=== PATIENT | female | born 2005 | race Caucasian/White ===

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

== ENCOUNTER → 2024-05-02 09:48 | Outpatient (BNVA) | payer MEDICAID, SELFPAY | PROVIDERS: PCP Pediatrics Adolescent Medicine; Visit Provider Nurse Practitioner | DX: J02.9 Acute pharyngitis, unspecified (principal) | CPT/HCPCS: 87070; 87486; 87581; 87633; 87880 ==

== ENCOUNTER → 2024-05-07 14:44 | Outpatient (BNVA) | payer MEDICAID, SELFPAY | PROVIDERS: PCP Pediatrics Adolescent Medicine; Visit Provider Pediatrics Adolescent Medicine | DX: J06.9 Acute upper respiratory infection, unspecified (principal) | CPT/HCPCS: 87486; 87581; 87633 ==

== ENCOUNTER → 2024-07-06 09:26 | Outpatient (BNVA) | payer MEDICAID, SELFPAY | PROVIDERS: PCP Pediatrics Adolescent Medicine; Visit Provider Nurse Practitioner | DX: R30.0 Dysuria (principal) | CPT/HCPCS: 81000; 87086 ==

== ENCOUNTER 2024-07-15 20:04 | Emergency (ER) | payer MEDICAID, SELFPAY ==
--- NOTE | 2024-07-15 20:06 | ECG_ITS ---
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 Measurements Intervals [place] Rate: 101 P: 56 GA: 144 QRS: 82 QRSD: 95 T: 46 QT: 340 QTc: 442 Interpretive Statements SINUS TACHYCARDIA ABNORMAL RHYTHM ECG No previous ECG avail Electronically Signed On 07-16-2024 22:43:57 CDT by Jose Gamez M.D. [id number]
[2024-07-15 20:15] VITALS: BP 131/76; PULSE 100; RESP 17; TEMP 36.7; O2SAT 95; BMI 46.2
--- NOTE | 2024-07-15 21:31 | ED_ITS ---
Documented by User: CHRISTINA Cullen 07/16/24 00:28 HPI - General Adult 2 General: Chief complaint: Nausea/Vomiting/Diarrhea Stated complaint: Chest pain Time Seen by Provider: 07/15/24 21:19 History of Present Illness: 19-year-old female was brought in from [facility] for concerns of generalized bodyaches and weakness. Patient was being awakened for a nap and stated that she is felt achy all over and did not want to get up. Patient's caregivers got her up and had her walk over to the nurses station in order to have vitals checked. On evaluation there they noted her blood pressure was high and recommended that she be evaluated further in the ER. Patient makes generalized complaints of bodyaches and weakness with increased pain with deep inspiration. Patient does have some mental disability with intellectual disability. Patient is morbidly obese. Related Data Home Medications Medication Instructions Recorded Confirmed ascorbic acid (vitamin C) 1,000 mg 1,000 mg PO DAILY 02/12/20 07/06/24 tablet,extended release (C Complex) vit B complex 100 combo no.2 100 1 tab PO DAILY 02/12/20 07/06/24 mg tablet,extended release (Balanced B-100 Complex) lamotrigine 200 mg tablet 300 mg PO DAILY 03/04/21 07/06/24 clonidine HCl 0.1 mg 0.2 mg PO TID 12/19/23 07/06/24 tablet,extended release,12 hr sertraline 150 mg capsule 200 mg PO DAILY 01/18/24 07/06/24 benzocaine 15 mg-menthol 2.6 mg 1 [place] mucous membrane Q2H PRN 05/02/24 07/06/24 lozenges (Cepacol Sore Throat (benzocaine-menthol)) lidocaine prilocaine cream topical PRN 05/02/24 07/06/24 lorazepam 0.5 mg tablet 1 mg PO TID PRN 05/02/24 07/06/24 nystatin topical PRN 05/02/24 07/06/24 ziprasidone HCl 60 mg capsule 80 mg PO BID 05/02/24 07/06/24 Previous Rx's Medication Instructions Recorded pediatric multivitamin no.17 with 1 tab PO DAILY #30 tabs 12/19/23 fluoride 1 mg chewable tablet (Multi-Vitamin With Fluoride) fluticasone propionate 50 1 spray intranasal DAILY #16 grams 01/18/24 mcg/actuation nasal spray,suspension (Allergy Relief (fluticasone)) acetaminophen 500 mg capsule 500 mg PO QID PRN pain #60 caps 01/19/24 benzocaine 15 mg-menthol 2.6 mg 1 [place] mucous membrane Q2H PRN sore 01/27/24 lozenges (Cepacol Sore Throat throat #16 ea (benzocaine-menthol)) simethicone 125 mg capsule (Gas 125 mg PO QID PRN abdominal 01/27/24 Relief (simethicone)) distention #90 caps levonorgestrel 0.15 mg-ethinyl 1 tab PO DAILY #84 tabs 02/15/24 estradiol 0.03 mg tablet (Levora-28) polyethylene glycol 3350 17 See Rx Instructions .Route 03/13/24 gram/dose oral powder (Gavilax) .COMPLEX #510 grams mupirocin 2 % topical ointment 1 applic topical TID PRN crusted 03/23/24 rash 7 days #22 grams hydroxyzine HCl 50 mg tablet 50 mg PO TID #180 tabs 05/02/24 erythromycin 5 mg/gram (0.5 %) eye See Rx Instructions ophthalmic 05/07/24 ointment (3.5 gram tube) (eye) TID #3.5 grams levomefolate calcium 15 mg tablet 15 mg PO DAILY #30 tabs 06/01/24 (L-Methylfolate) cetirizine 10 mg tablet See Rx Instructions .Route 07/12/24 .COMPLEX #30 tabs cephalexin 500 mg capsule 500 mg PO BID 7 days #14 caps 07/16/24 Allergies Allergy/AdvReac Type Severity Reaction Status Date / Time caffeine Allergy Unknown Verified 07/15/24 20:21 cocoa Allergy Unknown Verified 07/15/24 20:21 guarana Allergy Unknown Verified 07/15/24 20:21 Xanthines Allergy Unknown Verified 07/15/24 20:21 aripiprazole [From Abilify] AdvReac Mild Behavior Verified 07/06/24 09:25 problems brexpiprazole [From Rexulti] AdvReac Mild Causes Verified 07/06/24 09:25 lurasidone [From Latuda] AdvReac Mild Causes Verified 07/06/24 09:25 amphetamine [From Adderall] AdvReac Anxiety Verified 07/06/24 09:25 dextroamphetamine AdvReac Anxiety Verified 07/06/24 09:25 [From Adderall] Review of Systems 2 General: Reports: 10 or more systems reviewed and unremarkable except in HPI and below Const: Reports: body aches PFSH ED 2 PFSH: Medical History Exercise counseling No pertinent past medical history Denies diabetes, asthma, hypertension, DVT/PE PCP: Dr. Lopez Autism Seizure one seizure in elementary school; no known etiology; no further episodes Oppositional defiant behavior ADD (attention deficit disorder) Surgical History H/O tubal ligation (~01/18/23) performed by [facility] S/P eye surgery Grandmother states that her external eye muscles were too long and they were shortened to help with vision. S/P tonsillectomy and adenoidectomy In February 2014 Family History Mother Hypertension Unknown Family history not known due to adoption Elli's mother was adopted and details of family history are unknown. Yolanda mother has been incarcerated with multiple social problems and as a result Elli stays with her grandmother. Social History Smoking and tobacco/nicotine status: never used tobacco/nicotine Physical Exam 2 Const: COMMON NORMALS: alert HENMT: COMMON NORMALS: normocephalic HEAD & SCALP: normocephalic THROAT: posterior oropharynx normal Neck/C-Spine: COMMON NORMALS: full ROM Resp: COMMON NORMALS: normal respiratory effort and clear to auscultation bilaterally AUSCULTATION: clear to auscultation bilaterally Cardio: COMMON NORMALS: regular rate and regular rhythm RATE: regular rate RHYTHM: regular rhythm GI: COMMON NORMALS: Soft to palpation PALPATION: Yes Soft to palpation and Yes Tenderness to palpation present (GI) : COMMON NORMALS: Yes no CVA tenderness BLADDER/KIDNEY EXAM: Yes no CVA tenderness Back/Pelvis: COMMON NORMALS: no CVA tenderness Extremity: COMMON NORMALS: normal to inspection Neuro: SENSORIUM/ORIENTATION: Yes alert Skin: COMMON NORMALS: turgor normal GENERAL SKIN EXAM: turgor normal Course 2 Vital Signs: Vital signs: Vital Signs Temperature 98.1 F 07/15/24 20:15 Pulse Rate 108 H 07/16/24 00:35 Respiratory Rate 16 07/16/24 00:35 Blood Pressure 114/63 07/16/24 00:35 Pulse Oximetry 93 07/16/24 00:35 Oxygen Delivery Me thod Room Air 07/15/24 22:21 MDM - General Adult Medical Decision Making Patient was brought in by caregiving staff for concerns of weakness and generalized pain. Patient appears nontoxic. Patient skin is warm and dry. Patient has tenderness on palpation of the abdomen. Patient moves all extremities well. Vital signs are normal. Differential diagnosis includes viral syndrome, urinary tract infection, pneumonia, electrolyte imbalance, malingering. CBC and CMP were unremarkable. Chest x-ray noted some cardiomegaly and some vascular congestion/interstitial edema. Troponin was less than 6. And BNP was less than 30. I believe most likely the chest x-ray is probably more related to patient's body habitus. Patient's urine did have some increased white blood cells and leukocyte esterases. I reviewed patient with Dr. Taylor, attending ER physician, who agreed with plan for treatment for urinary tract infection and follow-up as needed and return to ER for worsening symptoms. Lab Data 07/15/24 21:56 07/15/24 21:56 Radiology Impressions Chest X-Ray 07/15/24 21:31 IMPRESSION: Cardiomegaly, pulmonary vascular congestion interstitial edema. Laboratory Results WBC 10.68 10^3/uL (4.5-13.0) 07/15/24 21:56 RBC 4.72 10^6/uL (3.85-5.65) 07/15/24 21:56 Hgb 13.10 g/dL (12.4-14.8) 07/15/24 21:56 Hct 41.5 % (36-47) 07/15/24 21:56 MCV 87.9 fl (85-98) 07/15/24 21:56 MCH 27.8 pg (27-33) 07/15/24 21:56 MCHC 31.6 g/dL (30-55) 07/15/24 21:56 RDW 12.8 % (12.1-15.1) 07/15/24 21:56 Plt Count 326 10^3/cmm (157-399) 07/15/24 21:56 MPV 9.2 fL (7.4-10.4) 07/15/24 21:56 Neut % (Auto) 61.5 % 07/15/24 21:56 Lymph % (Auto) 23.1 % 07/15/24 21:56 [place] % (Auto) 11.7 % 07/15/24 21:56 Eos % (Auto) 2.7 % 07/15/24 21:56 Baso % (Auto) 0.5 % 07/15/24 21:56 Neut # (Auto) 6.57 10^3/uL (1.8-8.0) 07/15/24 21:56 Lymph # (Auto) 2.5 10^3/uL (1.5-6.5) 07/15/24 21:56 [place] # (Auto) 1.3 10^3/uL (0.2-0.9) H 07/15/24 21:56 Eos # (Auto) 0.3 10^3/uL (0.0-0.8) 07/15/24 21:56 Baso # (Auto) 0.1 10^3/uL (0.0-0.1) 07/15/24 21:56 Nucleated RBC % (auto) 0 % 07/15/24 21:56 Nucleated RBCs # 0.0 /100WBC 07/15/24 21:56 Sodium 138 mmol/L (136-145) 07/15/24 21:56 Potassium 4.2 mmol/L (3.5-5.1) 07/15/24 21:56 Chloride 103 mmol/L (98-107) 07/15/24 21:56 Carbon Dioxide 23 mmol/L (22-29) 07/15/24 21:56 Anion Gap 16.2 (5-19) 07/15/24 21:56 BUN 12 mg/dL (6-20) 07/15/24 21:56 Creatinine 0.5 mg/dL (0.5-0.9) 07/15/24 21:56 GFR Calculation 157.3 mL/min (90-130) H 07/15/24 21:56 Glucose 104 mg/dL (65-115) 07/15/24 21:56 Calculated Osmolality 286 mOsm/kg (285-295) 07/15/24 21:56 Lactic Acid 1.4 mmol/L (0.5-2.2) 07/15/24 21:56 Calcium 9.6 mg/dL (8.5-10.5) 07/15/24 21:56 Total Bilirubin 0.2 mg/dL (0.15-1.2) 07/15/24 21:56 AST 27 U/L (0-32) 07/15/24 21:56 ALT 22 U/L (0-33) 07/15/24 21:56 Alkaline Phosphatase 84 U/L (35-105) 07/15/24 21:56 Troponin T Baseline < 6 ng/L (0-10) 07/15/24 21:56 C-Reactive Protein 25.4 mg/L (0.0-4.9) H 07/15/24 21:56 NT-Pro-B Natriuret Pep < 36 pg/mL (0-125) 07/15/24 21:56 Total Protein 7.4 g/dL (6.6-8.7) 07/15/24 21:56 Albumin 4.0 g/dL (3.5-5.2) 07/15/24 21:56 Globulin 3.4 g/dL (1.3-4.6) 07/15/24 21:56 HCG, Qual Negative (Negative) 07/15/24 21:56 Urine Color Yellow (Yellow) 07/15/24 22:10 Urine Appearance Turbid (CLEAR) A 07/15/24 22:10 Urine pH 7.5 (5-7) 07/15/24 22:10 Ur Specific [place] 1.019 (1.005-1.030) 07/15/24 22:10 Urine Protein Negative (Negative) 07/15/24 22:10 Urine Glucose (UA) Negative (Normal) 07/15/24 22:10 Urine Ketones Negative (Negative) 07/15/24 22:10 Urine Blood Negative (Negative) 07/15/24 22:10 Urine Nitrate Negative (Negative) 07/15/24 22:10 Urine Bilirubin Negative (Negative) 07/15/24 22:10 Urine Urobilinogen 1.0 mg/dL (Negative) 07/15/24 22:10 Ur Leukocyte Esterase 1+ (Negative) A 07/15/24 22:10 Urine RBC 0-2 /hpf (0-2) 07/15/24 22:10 Urine WBC 11-20 /hpf (0-5) H 07/15/24 22:10 Ur Squamous Epith Cells 0-5 /hpf (0-5) 07/15/24 22:10 Amorphous Sediment Not Reportable 07/15/24 22:10 Urine Bacteria None seen /hpf (NONE) 07/15/24 22:10 Hyaline Casts 1.21 /lpf 07/15/24 22:10 Adenovirus (PCR) Not detected (NOT DETECT) 07/15/24 21:46 C. pneumoniae DNA (PCR) Not detected (NOT DETECT) 07/15/24 21:46 Coronavirus 229E (PCR) Not detected (NOT DETECT) 07/15/24 21:46 Human Metapneumovir PCR Not detected (NOT DETECT) 07/15/24 21:46 Influenza A (H1) PCR Not detected (NOT DETECT) 07/15/24 21:46 Influ A (H1/09) PCR Not detected (NOT DETECT) 07/15/24 21:46 Influenza A (H3) PCR Not detected (NOT DETECT) 07/15/24 21:46 Influenza Type A (PCR) Not detected (NOT DETECT) 07/15/24 21:46 Influenza Type B (PCR) Not detected (NOT DETECT) 07/15/24 21:46 M. pneumoniae (PCR) Not detected (NOT DETECT) 07/15/24 21:46 Parainfluenza 1 (PCR) Not detected (NOT DETECT) 07/15/24 21:46 Parainfluenza 2 (PCR) Not detected (NOT DETECT) 07/15/24 21:46 Parainfluenza 3 (PCR) Not detected (NOT DETECT) 07/15/24 21:46 Parainfluenza 4 (PCR) Not detected (NOT DETECT) 07/15/24 21:46 RSV Type A (PCR) Not detected (NOT DETECT) 07/15/24 21:46 RSV Type B (PCR) Not detected (NOT DETECT) 07/15/24 21:46 Entero/Rhino (PCR) Not detected (NOT DETECT) 07/15/24 21:46 SARS-CoV-2 (PCR) Not detected (NOT DETECT) 07/15/24 21:46 All radiology interpretation(s) finalized by discharge EKG Data EKG 1: I personally reviewed and interpreted this EKG as follows: EKG interpretation date: 07/15/24 EKG interpretation time: 23:15 Prior EKG tracings: not available for review Interpretation: EKG shows a sinus tachycardia with a ventricular rate of 101 bpm and regular. No ST elevation is noted. No ectopy is noted. No prior exam was available for comparison. Computer generated interpretation: Chest X-Ray 07/15/24 21:31 IMPRESSION: Cardiomegaly, pulmonary vascular congestion interstitial edema. Sinus tachycardia. Abnormal rhythm EKG. Unconfirmed report. Discharge Plan Discharge Patient Disposition: Home Clinical Impression: UTI (urinary tract infection) Qualifiers: Urinary tract infection type: acute cystitis Hematuria presence: without hematuria Qualified Code(s): N30.00 - Acute cystitis without hematuria Condition: Stable Prescriptions: New cephalexin 500 mg capsule 500 mg PO BID 7 Days Qty: 14 0RF No Action Balanced B-100 Complex 100 mg tablet extended release 1 tab PO DAILY Rx Instructions: take 1 tablet PO every day at 8am. ascorbic acid (vitamin C) [C Complex] 1,000 mg tablet extended release 1,000 mg PO DAILY Rx Instructions: Take 1 tablet PO, every day at 8am. lamotrigine 200 mg tablet 300 mg PO DAILY levonorgestrel-ethinyl estrad [Levora-28] 0.15-0.03 mg tablet 1 tab PO DAILY Qty: 84 5RF Rx Instructions: TAKING CONTINUOUS-- SKIPS PLACEBO; ALLOW FOR ENOUGH REFILLS TO LAST UNTIL 02/14/25 Multi-Vitamin With Fluoride 1 mg tablet,chewable 1 tab PO DAILY Qty: 30 11RF Rx Instructions: TAKE 1 TABLET BY MOUTH EVERY DAY ziprasidone HCl 60 mg capsule 80 mg PO BID Rx Instructions: Take 1 tablet by Mouth morning and at 8pm. hydroxyzine HCl 50 mg tablet 50 mg PO TID Qty: 180 3RF Rx Instructions: morning, afternoon and evening lorazepam 0.5 mg tablet 1 mg PO TID PRN Cepacol Sore Throat (abdi-men) 15-2.6 mg lozenge 1 [place] mucous membrane Q2H PRN lidocaine prilocaine cream topical PRN nystatin topical PRN erythromycin 5 mg/gram (0.5 %) ointment See Rx Instructions ophthalmic (eye) TID Qty: 3.5 0RF Rx Instructions: one application into the eye(s) three times daily for 5-7 days; sertraline 150 mg capsule 200 mg PO DAILY fluticasone propionate [Allergy Relief (fluticasone)] 50 mcg/actuation spray,suspension 1 spray INTRANASAL DAILY Qty: 16 0RF Rx Instructions: 1 spray each nostril daily acetaminophen 500 mg capsule 500 mg PO QID PRN (Reason: pain) Qty: 60 0RF simethicone [Gas Relief (simethicone)] 125 mg capsule 125 mg PO QID MDD 4 caps PRN (Reason: abdominal distention) Qty: 90 3RF Rx Instructions: 1 cap by mouth after meals and at bedtime Cepacol Sore Throat (abdi-men) 15-2.6 mg lozenge 1 [place] mucous membrane Q2H PRN (Reason: sore throat) Qty: 16 3RF Rx Instructions: 1 lozenge by mouth every 2 hr as needed for sore throat polyethylene glycol 3350 [Gavilax] 17 gram/dose powder See Rx Instructions .ROUTE .COMPLEX Qty: 510 3RF Dose Instruction: USE 17 GRAMS EVERY DAY FOR CONSTIPATION Rx Instructions: USE 17 GRAMS EVERY DAY FOR CONSTIPATION mupirocin 2 % ointment 1 applic topical TID PRN (Reason: crusted rash) 7 Days Qty: 22 0RF Rx Instructions: apply 3x/day x 7 days if crusted/oozing rash suggests impetigo levomefolate calcium [L-Methylfolate] 15 mg tablet 15 mg PO DAILY Qty: 30 3RF cetirizine 10 mg tablet See Rx Instructions .ROUTE .COMPLEX Qty: 30 3RF Dose Instruction: TAKE ONE TABLET BY MOUTH EVERY DAY Rx Instructions: TAKE ONE TABLET BY MOUTH EVERY DAY clonidine HCl 0.1 mg tablet extended release 12 hr 0.2 mg PO TID Patient Comments: 2 tabs morning, noon, and evening Discharge Orders: Discharge ED (Routine); Ordered 07/16/24 Ordered By: Jonathan Centeno Referrals: Melanie Lopez MD [Primary Care Provider] - Discharge Diet: Usual diet Discharge Activity: Increase activity as tolerated Patient Instructions: Urinary Tract Infection in Women (ED) Activity Restrictions/Additional Instructions: Thank you for choosing [facility] for your healthcare needs today. Please realize that you were seen in the emergency department and that we are providing you with an emergency medical screening exam and this may not be a complete and all exclusive of all testing and/or medical workup we may need to determine your element or severity of your illness. It is very important that you follow-up as instructed with your primary care provider or specialist for the additional evaluation and to discuss your medical treatment plan. You may return to the emergency department should you have concerns or if your condition changes or worsens in any way. Coding Level of Care Code ED Hoe Runner for Chg Fwd Documented by User: Ronald Taylor DO 07/16/24 02:07 HPI - General Adult 2 General: Chief complaint: Nausea/Vomiting/Diarrhea Stated complaint: Chest pain Time Seen by Provider: 07/15/24 21:19 Related Data Home Medications Medication Instructions Recorded Confirmed ascorbic acid (vitamin C) 1,000 mg 1,000 mg PO DAILY 02/12/20 07/06/24 tablet,extended release (C Complex) vit B complex 100 combo no.2 100 1 tab PO DAILY 02/12/20 07/06/24 mg tablet,extended release (Balanced B-100 Complex) lamotrigine 200 mg tablet 300 mg PO DAILY 03/04/21 07/06/24 clonidine HCl 0.1 mg 0.2 mg PO TID 12/19/23 07/06/24 tablet,extended release,12 hr sertraline 150 mg capsule 200 mg PO DAILY 01/18/24 07/06/24 benzocaine 15 mg-menthol 2.6 mg 1 [place] mucous membrane Q2H PRN 05/02/24 07/06/24 lozenges (Cepacol Sore Throat (benzocaine-menthol)) lidocaine prilocaine cream topical PRN 05/02/24 07/06/24 lorazepam 0.5 mg tablet 1 mg PO TID PRN 05/02/24 07/06/24 nystatin topical PRN 05/02/24 07/06/24 ziprasidone HCl 60 mg capsule 80 mg PO BID 05/02/24 07/06/24 Previous Rx's Medication Instructions Recorded pediatric multivitamin no.17 with 1 tab PO DAILY #30 tabs 12/19/23 fluoride 1 mg chewable tablet (Multi-Vitamin With Fluoride) fluticasone propionate 50 1 spray intranasal DAILY #16 grams 01/18/24 mcg/actuation nasal spray,suspension (Allergy Relief (fluticasone)) acetaminophen 500 mg capsule 500 mg PO QID PRN pain #60 caps 01/19/24 benzocaine 15 mg-menthol 2.6 mg 1 [place] mucous membrane Q2H PRN sore 01/27/24 lozenges (Cepacol Sore Throat throat #16 ea (benzocaine-menthol)) simethicone 125 mg capsule (Gas 125 mg PO QID PRN abdominal 01/27/24 Relief (simethicone)) distention #90 caps levonorgestrel 0.15 mg-ethinyl 1 tab PO DAILY #84 tabs 02/15/24 estradiol 0.03 mg tablet (Levora-28) polyethylene glycol 3350 17 See Rx Instructions .Route 03/13/24 gram/dose oral powder (Gavilax) .COMPLEX #510 grams mupirocin 2 % topical ointment 1 applic topical TID PRN crusted 03/23/24 rash 7 days #22 grams hydroxyzine HCl 50 mg tablet 50 mg PO TID #180 tabs 05/02/24 erythromycin 5 mg/gram (0.5 %) eye See Rx Instructions ophthalmic 05/07/24 ointment (3.5 gram tube) (eye) TID #3.5 grams levomefolate calcium 15 mg tablet 15 mg PO DAILY #30 tabs 06/01/24 (L-Methylfolate) cetirizine 10 mg tablet See Rx Instructions .Route 07/12/24 .COMPLEX #30 tabs cephalexin 500 mg capsule 500 mg PO BID 7 days #14 caps 07/16/24 Allergies Allergy/AdvReac Type Severity Reaction Status Date / Time caffeine Allergy Unknown Verified 07/15/24 20:21 cocoa Allergy Unknown Verified 07/15/24 20:21 guarana Allergy Unknown Verified 07/15/24 20:21 Xanthines Allergy Unknown Verified 07/15/24 20:21 aripiprazole [From Abilify] AdvReac Mild Behavior Verified 07/06/24 09:25 problems brexpiprazole [From Rexulti] AdvReac Mild Causes Verified 07/06/24 09:25 lurasidone [From Latuda] AdvReac Mild Causes Verified 07/06/24 09:25 amphetamine [From Adderall] AdvReac Anxiety Verified 07/06/24 09:25 dextroamphetamine AdvReac Anxiety Verified 07/06/24 09:25 [From Adderall] [facility] ED 2 PFSH: Medical History Exercise counseling No pertinent past medical history Denies diabetes, asthma, hypertension, DVT/PE PCP: Dr. Lopez Autism Seizure one seizure in elementary school; no known etiology; no further episodes Oppositional defiant behavior ADD (attention deficit disorder) Surgical History H/O tubal ligation (~01/18/23) performed by [facility] S/P eye surgery Grandmother states that her external eye muscles were too long and they were shortened to help with vision. S/P tonsillectomy and adenoidectomy In February 2014 Family History Mother Hypertension Unknown Family history not known due to adoption Elli's mother was adopted and details of family history are unknown. Yolanda mother has been incarcerated with multiple social problems and as a result Elli stays with her grandmother. Social History Smoking and tobacco/nicotine status: never used tobacco/nicotine Course 2 Vital Signs: Vital signs: Vital Signs Temperature 98.1 F 07/15/24 20:15 Pulse Rate 108 H 07/16/24 00:35 Respiratory Rate 16 07/16/24 00:35 Blood Pressure 114/63 07/16/24 00:35 Pulse Oximetry 93 07/16/24 00:35 Oxygen Delivery Me thod Room Air 07/15/24 22:21 MDM - General Adult Medical Decision Making Patient was brought in by caregiving staff for concerns of weakness and generalized pain. Patient appears nontoxic. Patient skin is warm and dry. Patient has tenderness on palpation of the abdomen. Patient moves all extremities well. Vital signs are normal. Differential diagnosis includes viral syndrome, urinary tract infection, pneumonia, electrolyte imbalance, malingering. CBC and CMP were unremarkable. Chest x-ray noted some cardiomegaly and some vascular congestion/interstitial edema. Troponin was less than 6. And BNP was less than 30. I believe most likely the chest x-ray is probably more related to patient's body habitus. Patient's urine did have some increased white blood cells and leukocyte esterases. I reviewed patient with Dr. Taylor, attending ER physician, who agreed with plan for treatment for urinary tract infection and follow-up as needed and return to ER for worsening symptoms. This patient was originally seen by CHRISTINA Harp.? I agree with his history, evaluation, and treatment. Lab Data 07/15/24 21:56 07/15/24 21:56 Radiology Impressions Chest X-Ray 07/15/24 21:31 IMPRESSION: Cardiomegaly, pulmonary vascular congestion interstitial edema. Laboratory Results WBC 10.68 10^3/uL (4.5-13.0) 07/15/24 21:56 RBC 4.72 10^6/uL (3.85-5.65) 07/15/24 21:56 Hgb 13.10 g/dL (12.4-14.8) 07/15/24 21:56 Hct 41.5 % (36-47) 07/15/24 21:56 MCV 87.9 fl (85-98) 07/15/24 21:56 MCH 27.8 pg (27-33) 07/15/24 21:56 MCHC 31.6 g/dL (30-55) 07/15/24 21:56 RDW 12.8 % (12.1-15.1) 07/15/24 21:56 Plt Count 326 10^3/cmm (157-399) 07/15/24 21:56 MPV 9.2 fL (7.4-10.4) 07/15/24 21:56 Neut % (Auto) 61.5 % 07/15/24 21:56 Lymph % (Auto) 23.1 % 07/15/24 21:56 [place] % (Auto) 11.7 % 07/15/24 21:56 Eos % (Auto) 2.7 % 07/15/24 21:56 Baso % (Auto) 0.5 % 07/15/24 21:56 Neut # (Auto) 6.57 10^3/uL (1.8-8.0) 07/15/24 21:56 Lymph # (Auto) 2.5 10^3/uL (1.5-6.5) 07/15/24 21:56 [place] # (Auto) 1.3 10^3/uL (0.2-0.9) H 07/15/24 21:56 Eos # (Auto) 0.3 10^3/uL (0.0-0.8) 07/15/24 21:56 Baso # (Auto) 0.1 10^3/uL (0.0-0.1) 07/15/24 21:56 Nucleated RBC % (auto) 0 % 07/15/24 21:56 Nucleated RBCs # 0.0 /100WBC 07/15/24 21:56 Sodium 138 mmol/L (136-145) 07/15/24 21:56 Potassium 4.2 mmol/L (3.5-5.1) 07/15/24 21:56 Chloride 103 mmol/L (98-107) 07/15/24 21:56 Carbon Dioxide 23 mmol/L (22-29) 07/15/24 21:56 Anion Gap 16.2 (5-19) 07/15/24 21:56 BUN 12 mg/dL (6-20) 07/15/24 21:56 Creatinine 0.5 mg/dL (0.5-0.9) 07/15/24 21:56 GFR Calculation 157.3 mL/min (90-130) H 07/15/24 21:56 Glucose 104 mg/dL (65-115) 07/15/24 21:56 Calculated Osmolality 286 mOsm/kg (285-295) 07/15/24 21:56 Lactic Acid 1.4 mmol/L (0.5-2.2) 07/15/24 21:56 Calcium 9.6 mg/dL (8.5-10.5) 07/15/24 21:56 Total Bilirubin 0.2 mg/dL (0.15-1.2) 07/15/24 21:56 AST 27 U/L (0-32) 07/15/24 21:56 ALT 22 U/L (0-33) 07/15/24 21:56 Alkaline Phosphatase 84 U/L (35-105) 07/15/24 21:56 Troponin T Baseline < 6 ng/L (0-10) 07/15/24 21:56 C-Reactive Protein 25.4 mg/L (0.0-4.9) H 07/15/24 21:56 NT-Pro-B Natriuret Pep < 36 pg/mL (0-125) 07/15/24 21:56 Total Protein 7.4 g/dL (6.6-8.7) 07/15/24 21:56 Albumin 4.0 g/dL (3.5-5.2) 07/15/24 21:56 Globulin 3.4 g/dL (1.3-4.6) 07/15/24 21:56 HCG, Qual Negative (Negative) 07/15/24 21:56 Urine Color Yellow (Yellow) 07/15/24 22:10 Urine Appearance Turbid (CLEAR) A 07/15/24 22:10 Urine pH 7.5 (5-7) 07/15/24 22:10 Ur Specific [place] 1.019 (1.005-1.030) 07/15/24 22:10 Urine Protein Negative (Negative) 07/15/24 22:10 Urine Glucose (UA) Negative (Normal) 07/15/24 22:10 Urine Ketones Negative (Negative) 07/15/24 22:10 Urine Blood Negative (Negative) 07/15/24 22:10 Urine Nitrate Negative (Negative) 07/15/24 22:10 Urine Bilirubin Negative (Negative) 07/15/24 22:10 Urine Urobilinogen 1.0 mg/dL (Negative) 07/15/24 22:10 Ur Leukocyte Esterase 1+ (Negative) A 07/15/24 22:10 Urine RBC 0-2 /hpf (0-2) 07/15/24 22:10 Urine WBC 11-20 /hpf (0-5) H 07/15/24 22:10 Ur Squamous Epith Cells 0-5 /hpf (0-5) 07/15/24 22:10 Amorphous Sediment Not Reportable 07/15/24 22:10 Urine Bacteria None seen /hpf (NONE) 07/15/24 22:10 Hyaline Casts 1.21 /lpf 07/15/24 22:10 Adenovirus (PCR) Not detected (NOT DETECT) 07/15/24 21:46 C. pneumoniae DNA (PCR) Not detected (NOT DETECT) 07/15/24 21:46 Coronavirus 229E (PCR) Not detected (NOT DETECT) 07/15/24 21:46 Human Metapneumovir PCR Not detected (NOT DETECT) 07/15/24 21:46 Influenza A (H1) PCR Not detected (NOT DETECT) 07/15/24 21:46 Influ A (H1/09) PCR Not detected (NOT DETECT) 07/15/24 21:46 Influenza A (H3) PCR Not detected (NOT DETECT) 07/15/24 21:46 Influenza Type A (PCR) Not detected (NOT DETECT) 07/15/24 21:46 Influenza Type B (PCR) Not detected (NOT DETECT) 07/15/24 21:46 M. pneumoniae (PCR) Not detected (NOT DETECT) 07/15/24 21:46 Parainfluenza 1 (PCR) Not detected (NOT DETECT) 07/15/24 21:46 Parainfluenza 2 (PCR) Not detected (NOT DETECT) 07/15/24 21:46 Parainfluenza 3 (PCR) Not detected (NOT DETECT) 07/15/24 21:46 Parainfluenza 4 (PCR) Not detected (NOT DETECT) 07/15/24 21:46 RSV Type A (PCR) Not detected (NOT DETECT) 07/15/24 21:46 RSV Type B (PCR) Not detected (NOT DETECT) 07/15/24 21:46 Entero/Rhino (PCR) Not detected (NOT DETECT) 07/15/24 21:46 SARS-CoV-2 (PCR) Not detected (NOT DETECT) 07/15/24 21:46 EKG Data EKG 1: Computer generated interpretation: Chest X-Ray 07/15/24 21:31 IMPRESSION: Cardiomegaly, pulmonary vascular congestion interstitial edema. Discharge Plan Discharge Patient Disposition: Home Clinical Impression: UTI (urinary tract infection) Qualifiers: Urinary tract infection type: acute cystitis Hematuria presence: without hematuria Qualified Code(s): N30.00 - Acute cystitis without hematuria Condition: Stable Prescriptions: New cephalexin 500 mg capsule 500 mg PO BID 7 Days Qty: 14 0RF No Action Balanced B-100 Complex 100 mg tablet extended release 1 tab PO DAILY Rx Instructions: take 1 tablet PO every day at 8am. ascorbic acid (vitamin C) [C Complex] 1,000 mg tablet extended release 1,000 mg PO DAILY Rx Instructions: Take 1 tablet PO, every day at 8am. lamotrigine 200 mg tablet 300 mg PO DAILY levonorgestrel-ethinyl estrad [Levora-28] 0.15-0.03 mg tablet 1 tab PO DAILY Qty: 84 5RF Rx Instructions: TAKING CONTINUOUS-- SKIPS PLACEBO; ALLOW FOR ENOUGH REFILLS TO LAST UNTIL 02/14/25 Multi-Vitamin With Fluoride 1 mg tablet,chewable 1 tab PO DAILY Qty: 30 11RF Rx Instructions: TAKE 1 TABLET BY MOUTH EVERY DAY ziprasidone HCl 60 mg capsule 80 mg PO BID Rx Instructions: Take 1 tablet by Mouth morning and at 8pm. hydroxyzine HCl 50 mg tablet 50 mg PO TID Qty: 180 3RF Rx Instructions: morning, afternoon and evening lorazepam 0.5 mg tablet 1 mg PO TID PRN Cepacol Sore Throat (abdi-men) 15-2.6 mg lozenge 1 [place] mucous membrane Q2H PRN lidocaine prilocaine cream topical PRN nystatin topical PRN erythromycin 5 mg/gram (0.5 %) ointment See Rx Instructions ophthalmic (eye) TID Qty: 3.5 0RF Rx Instructions: one application into the eye(s) three times daily for 5-7 days; sertraline 150 mg capsule 200 mg PO DAILY fluticasone propionate [Allergy Relief (fluticasone)] 50 mcg/actuation spray,suspension 1 spray INTRANASAL DAILY Qty: 16 0RF Rx Instructions: 1 spray each nostril daily acetaminophen 500 mg capsule 500 mg PO QID PRN (Reason: pain) Qty: 60 0RF simethicone [Gas Relief (simethicone)] 125 mg capsule 125 mg PO QID MDD 4 caps PRN (Reason: abdominal distention) Qty: 90 3RF Rx Instructions: 1 cap by mouth after meals and at bedtime Cepacol Sore Throat (abdi-men) 15-2.6 mg lozenge 1 [place] mucous membrane Q2H PRN (Reason: sore throat) Qty: 16 3RF Rx Instructions: 1 lozenge by mouth every 2 hr as needed for sore throat polyethylene glycol 3350 [Gavilax] 17 gram/dose powder See Rx Instructions .ROUTE .COMPLEX Qty: 510 3RF Dose Instruction: USE 17 GRAMS EVERY DAY FOR CONSTIPATION Rx Instructions: USE 17 GRAMS EVERY DAY FOR CONSTIPATION mupirocin 2 % ointment 1 applic topical TID PRN (Reason: crusted rash) 7 Days Qty: 22 0RF Rx Instructions: apply 3x/day x 7 days if crusted/oozing rash suggests impetigo levomefolate calcium [L-Methylfolate] 15 mg tablet 15 mg PO DAILY Qty: 30 3RF cetirizine 10 mg tablet See Rx Instructions .ROUTE .COMPLEX Qty: 30 3RF Dose Instruction: TAKE ONE TABLET BY MOUTH EVERY DAY Rx Instructions: TAKE ONE TABLET BY MOUTH EVERY DAY clonidine HCl 0.1 mg tablet extended release 12 hr 0.2 mg PO TID Patient Comments: 2 tabs morning, noon, and evening Discharge Orders: Discharge ED (Routine); Ordered 07/16/24 Ordered By: Jonathan Centeno Referrals: Melanie Lopez MD [Primary Care Provider] - Discharge Diet: Usual diet Discharge Activity: Increase activity as tolerated Patient Instructions: Urinary Tract Infection in Women (ED) Activity Restrictions/Additional Instructions: Thank you for choosing [facility] for your healthcare needs today. Please realize that you were seen in the emergency department and that we are providing you with an emergency medical screening exam and this may not be a complete and all exclusive of all testing and/or medical workup we may need to determine your element or severity of your illness. It is very important that you follow-up as instructed with your primary care provider or specialist for the additional evaluation and to discuss your medical treatment plan. You may return to the emergency department should you have concerns or if your condition changes or worsens in any way. Coding Level of Care Code ED Hoe Runner for Corrina Wheat
--- NOTE | 2024-07-15 21:31 | XRR_ITS ---
PROCEDURE INFORMATION: Exam: XR Chest Exam date and time: 07/15/2024 9:44 PM Age: 19 years old Clinical indication: Patient HX: C/O chest discomfort with painful inspiration; Additional info: Pain with inspiration TECHNIQUE: Imaging protocol: Radiologic exam of the chest. Views: 1 view. COMPARISON: No relevant prior studies available. FINDINGS: Lungs: See Heart/Mediastinum finding. Pleural spaces: Unremarkable. No pleural effusion. No pneumothorax. Heart/Mediastinum: Cardiomegaly, pulmonary vascular congestion interstitial edema. Bones/joints: Unremarkable. XR/XR chest 1V portable [id number] IMPRESSION: Cardiomegaly, pulmonary vascular congestion interstitial edema.
[2024-07-15 22:08] LABS: Basophils # 0.1 10^3/uL (0.0-0.1); Basophils % 0.5 %; Eosinophils # 0.3 10^3/uL (0.0-0.8); Eosinophils % 2.7 %; Hematocrit 41.5 % (36-47); Lymphocytes # 2.5 10^3/uL (1.5-6.5); Lymphocytes % 23.1 %; Mean Corpuscular HGB Conc 31.6 g/dL (30-55); Mean Corpuscular Hemoglobin 27.8 pg (27-33); Mean Corpuscular Volume 87.9 fl (85-98); Mean Platelet Volume 9.2 fL (7.4-10.4); Monocytes # 1.3 10^3/uL (0.2-0.9); Monocytes % 11.7 %; Neutrophils # 6.57 10^3/uL (1.8-8.0); Neutrophils % 61.5 %; Nucleated Red Blood Cells % 0 %; Platelet Count 326 10^3/cmm (157-399); Red Blood Count 4.72 10^6/uL (3.85-5.65); Red Cell Distribution Width 12.8 % (12.1-15.1); White Blood Count 10.68 10^3/uL (4.5-13.0)
[2024-07-15] MEDS: ondansetron 4 MG Tablet PO (22:09)
[2024-07-15 22:17] LABS: HCG, Serum Qual Negative (Negative)
[2024-07-15 22:21] VITALS: BP 102/71; PULSE 96; O2SAT 93
[2024-07-15 22:22] LABS: Charge for UA Resulting for Rev
[2024-07-15 22:25] LABS: Bilirubin Urine Negative (Negative); Blood Urine Negative (Negative); Glucose Urine UA Negative (Normal); Ketones Urine Negative (Negative); Leukocyte Esterase Urine 1+ (Negative); Nitrate Urine Negative (Negative); Protein Urine Negative (Negative); Specific Gravity, Urine 1.019 (1.005-1.030); Urine Appearance Turbid (CLEAR); Urine Color Yellow (Yellow); pH Urine 7.5 (5-7)
[2024-07-15 22:26] LABS: Alanine Aminotransferase 22 U/L (0-33); Alkaline Phosphatase 84 U/L (35-105); Anion Gap 16.2 (5-19); Aspartate Amino Transferase 27 U/L (0-32); Blood Urea Nitrogen 12 mg/dL (6-20); C Reactive Protein 25.4 mg/L (0.0-4.9); Calcium 9.6 mg/dL (8.5-10.5); Carbon Dioxide 23 mmol/L (22-29); Chloride 103 mmol/L (98-107); Creatinine Clr Calc Pharmacy 248.1433; Globulin 3.4 g/dL (1.3-4.6); Glomerular Filtration Rate 157.3 mL/min (90-130); Glucose 104 mg/dL (65-115); Osmolality Calculated 286 mOsm/kg (285-295); Potassium 4.2 mmol/L (3.5-5.1); Sodium 138 mmol/L (136-145); Total Bilirubin 0.2 mg/dL (0.15-1.2); Total Protein 7.4 g/dL (6.6-8.7)
[2024-07-15 22:27] LABS: Lactic Sepsis W/Reflex 1.4 mmol/L (0.5-2.2)
[2024-07-15 22:30] LABS: Bacteria Urine None Seen /hpf; Hyaline Casts Urine 1.21 /lpf; RBC Urine 0-2 /hpf (0-2); Squamous Epithelial Cell Urine 0-5 /hpf (0-5)
--- NOTE | 2024-07-15 22:48 | ECG_ITS ---
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 Measurements Intervals [place] Rate: 101 P: 67 OR: 144 QRS: 82 QRSD: 92 T: 55 QT: 357 QTc: 464 Interpretive Statements SINUS TACHYCARDIA ABNORMAL RHYTHM ECG No previous ECG available for comparison Electronically Signed On 07-16-2024 22:44:32 CDT by Jose Gamez M.D. [id number]
[2024-07-15] MEDS: HYDROcodone-acetaminophen 5-325 mg Tablet 1 TAB PO (23:04)
[2024-07-15 23:09] LABS: Troponin(5th) Baseline < 6 ng/L (0-10)
[2024-07-15 23:18] LABS: NT Pro B Type Natriuretic Pept < 36 pg/mL (0-125)
[2024-07-15] MEDS: cephALEXin 500 mg Capsule PO (23:36)
[2024-07-16 00:09] LABS: Adenovirus Not Detected (NOT DETECT); Chlamydia Pneumoniae Not Detected (NOT DETECT); Coronavirus 229E,HKU1,NL63,OC4 Not Detected (NOT DETECT); Human Metapneumovirus Not Detected (NOT DETECT); Human Rhinovirus/Enterovirus Not Detected (NOT DETECT); Influenza A Not Detected (NOT DETECT); Influenza A H1 Not Detected (NOT DETECT); Influenza A H1-2009 Not Detected (NOT DETECT); Influenza A H3 Not Detected (NOT DETECT); Influenza B Not Detected (NOT DETECT); Mycoplasma Pneumoniae Not Detected (NOT DETECT); Parainfluenza Virus Type 1 Not Detected (NOT DETECT); Parainfluenza Virus Type 2 Not Detected (NOT DETECT); Parainfluenza Virus Type 3 Not Detected (NOT DETECT); Parainfluenza Virus Type 4 Not Detected (NOT DETECT); Respiratory Syncytial Virus A Not Detected (NOT DETECT); Respiratory Syncytial Virus B Not Detected (NOT DETECT); SARS-COV-2 Not Detected (NOT DETECT)
[2024-07-16 00:35] VITALS: BP 114/63; PULSE 108; RESP 16; O2SAT 93
== END 2024-07-16 00:37 | disposition home or self-care (01) ==
PROVIDERS: Emergency Provider Nurse Practitioner Family; PCP Pediatrics Adolescent Medicine
DX: N30.00 Acute cystitis without hematuria (principal); R00.0 Tachycardia, unspecified; Z11.52 Encounter for screening for COVID-19; F84.0 Autistic disorder
CPT/HCPCS: 36415; 71045; 80053; 81003; 81015; 83605; 83880; 84484; 84703; 85025; 86140; 87486; 87581; 87633; 93005; 99285; Q0162

== ENCOUNTER → 2024-07-21 17:29 | Outpatient (BNVA) | payer MEDICAID, SELFPAY | PROVIDERS: PCP Pediatrics Adolescent Medicine; Visit Provider Emergency Medicine | DX: R51.9 Headache, unspecified (principal) | CPT/HCPCS: 87426 ==

== ENCOUNTER 2024-08-15 11:57 | Outpatient (CLI) | payer MEDICAID, SELFPAY ==
[2024-08-15 12:21] LABS: Basophils % 0.4 %; Eosinophils # 0.3 10^3/uL (0.0-0.8); Eosinophils % 3.2 %; Hematocrit 39.4 % (36-47); Lymphocytes # 2.1 10^3/uL (1.5-6.5); Lymphocytes % 21.2 %; Mean Corpuscular Hemoglobin 28.4 pg (27-33); Mean Corpuscular Volume 86.2 fl (85-98); Monocytes # 0.8 10^3/uL (0.2-0.9); Monocytes % 7.7 %; Neutrophils # 6.55 10^3/uL (1.8-8.0); Nucleated Red Blood Cells % 0 %; Platelet Count 307 10^3/cmm (157-399); Red Blood Count 4.57 10^6/uL (3.85-5.65); Red Cell Distribution Width 12.9 % (12.1-15.1); White Blood Count 9.77 10^3/uL (4.5-13.0)
[2024-08-15 12:37] LABS: Estmated Average Glucose 126
[2024-08-15 13:05] LABS: 25 Hydroxy Vitamin D 21 ng/mL (30-100); Alanine Aminotransferase 23 U/L (0-33); Albumin Level 3.8 g/dL (3.5-5.2); Alkaline Phosphatase 94 U/L (35-105); Anion Gap 15.9 (5-19); Aspartate Amino Transferase 27 U/L (0-32); Blood Urea Nitrogen 13 mg/dL (6-20); Calcium 9.4 mg/dL (8.5-10.5); Carbon Dioxide 23 mmol/L (22-29); Chloride 103 mmol/L (98-107); Cholesterol 180 mg/dL (0-200); Globulin 3.4 g/dL (1.3-4.6); Glomerular Filtration Rate 157.3 mL/min (90-130); Glucose 140 mg/dL (65-115); HDL Cholesterol 50 mg/dL (60-100); LDL Cholesterol Calculated 94 mg/dL (50-129); LDL HDL Ratio 1.88 RATIO (0.00-3.22); Osmolality Calculated 288 mOsm/kg (285-295); Potassium 3.9 mmol/L (3.5-5.1); Sodium 138 mmol/L (136-145); Thyroid Stimulating Hormone 1.47 uIU/mL (0.27-4.20); Total Bilirubin 0.2 mg/dL (0.15-1.2); Total Protein 7.2 g/dL (6.6-8.7); Triglycerides 182 mg/dL (0-150)
[2024-08-15 13:37] LABS: Free T4 Free Thyroxine 0.78 ng/dL (0.82-1.77)
[2024-08-16 07:24] LABS: C-Peptide 9.61 ng/mL (0.80-3.85)
== END 2024-08-15 11:58 | disposition home or self-care (01) ==
PROVIDERS: PCP Pediatrics Adolescent Medicine; Visit Provider Nurse Practitioner
DX: R73.09 Other abnormal glucose (principal); E55.9 Vitamin D deficiency, unspecified; R30.0 Dysuria; J02.9 Acute pharyngitis, unspecified; Z30.09 Encounter for other general counseling and advice on contraception
CPT/HCPCS: 36415; 80053; 80061; 81000; 81025; 82306; 83036; 84439; 84443; 84681; 85025; 87070; 87086; 87880

== ENCOUNTER 2024-09-28 22:23 | Emergency (ER) | payer MEDICAID, SELFPAY ==
--- NOTE | 2024-09-28 22:27 | ECG_ITS ---
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 Measurements Intervals [place] Rate: 91 P: 37 CT: 152 QRS: 48 QRSD: 100 T: 27 QT: 366 QTc: 450 Interpretive Statements SINUS RHYTHM Compared to ECG 07/15/2024 22:55:46 Sinus tachycardia no longer present Electronically Signed On 09-29-2024 15:58:43 SENIOR OFFICE SUPPORT ASSISTANT SOSA by Johann Carreno M.D. [id number]
[2024-09-28 22:31] VITALS: BP 152/95; PULSE 99; RESP 16; TEMP 36.7; O2SAT 98; BMI 51.1
--- NOTE | 2024-09-28 22:55 | ED_ITS ---
HPI - SOB/Dyspnea 2 General: Chief Complaint: Shortness of Breath/Dyspnea Stated Complaint: Cp into back pulse high Time Seen by Provider: 09/28/24 22:36 History of Present Illness: HPI Narrative: Patient presents to the ER with complaining of chest pain back pain shortness of breath when she laid down. States she feels a heaviness in her chest. Patient said it started about an hour ago. Patient is never had this before. It does worsen with palpation of the chest. Patient has no cardiac history and has an extensive psychiatric history. She lives in a [facility]. She is a vaughn of the [facility]. Related Data Home Medications Medication Instructions Recorded Confirmed lamotrigine 200 mg tablet 300 mg PO DAILY 03/04/21 09/08/24 clonidine HCl 0.1 mg 0.2 mg PO TID 12/19/23 09/08/24 tablet,extended release,12 hr sertraline 150 mg capsule 200 mg PO DAILY 01/18/24 09/08/24 benzocaine 15 mg-menthol 2.6 mg 1 [place] mucous membrane Q2H PRN 05/02/24 09/08/24 lozenges (Cepacol Sore Throat (benzocaine-menthol)) lidocaine prilocaine cream topical PRN 05/02/24 09/08/24 lorazepam 0.5 mg tablet 1 mg PO TID PRN 05/02/24 09/08/24 ziprasidone HCl 60 mg capsule 80 mg PO BID 05/02/24 09/08/24 Previous Rx's Medication Instructions Recorded pediatric multivitamin no.17 with 1 tab PO DAILY #30 tabs 12/19/23 fluoride 1 mg chewable tablet (Multi-Vitamin With Fluoride) fluticasone propionate 50 1 spray intranasal DAILY #16 grams 01/18/24 mcg/actuation nasal spray,suspension (Allergy Relief (fluticasone)) simethicone 125 mg capsule (Gas 125 mg PO QID PRN abdominal 01/27/24 Relief (simethicone)) distention #90 caps levonorgestrel 0.15 mg-ethinyl 1 tab PO DAILY #84 tabs 02/15/24 estradiol 0.03 mg tablet (Levora-28) mupirocin 2 % topical ointment 1 applic topical TID PRN crusted 03/23/24 rash 7 days #22 grams hydroxyzine HCl 50 mg tablet 50 mg PO TID #180 tabs 05/02/24 levomefolate calcium 15 mg tablet 15 mg PO DAILY #30 tabs 06/01/24 (L-Methylfolate) cetirizine 10 mg tablet See Rx Instructions .Route 07/12/24 .COMPLEX #30 tabs acetaminophen 500 mg tablet 1,000 mg (2 x 500 mg) PO TID PRN 08/15/24 (Tylenol Extra Strength) pain #90 tabs ascorbic acid (vitamin C) 1,000 mg 1,000 mg PO DAILY #30 tabs 08/15/24 tablet,extended release (C Complex) ibuprofen 600 mg tablet 600 mg PO TID PRN pain #60 tabs 08/15/24 nystatin 100,000 unit/gram topical 1 applic topical TID PRN yeast 08/15/24 powder infection #30 grams polyethylene glycol 3350 17 See Rx Instructions .Route 08/15/24 gram/dose oral powder (Gavilax) .COMPLEX #510 grams vit B complex 100 combo no.2 100 1 tab PO DAILY #30 tabs 08/15/24 mg tablet,extended release (Balanced B-100 Complex) cholecalciferol (vitamin D3) 50 50 mcg PO DAILY 6 weeks #42 caps 08/16/24 mcg (2,000 unit) capsule ciprofloxacin HCl 500 mg tablet 500 mg PO Q12H #20 tabs 09/29/24 Allergies Allergy/AdvReac Type Severity Reaction Status Date / Time caffeine Allergy Unknown Verified 09/08/24 18:08 cocoa Allergy Unknown Verified 09/08/24 18:08 guarana Allergy Unknown Verified 09/08/24 18:08 Xanthines Allergy Unknown Verified 09/08/24 18:08 aripiprazole [From Abilify] AdvReac Mild Behavior Verified 09/08/24 18:08 problems brexpiprazole [From Rexulti] AdvReac Mild Causes Verified 09/08/24 18:08 lurasidone [From Latuda] AdvReac Mild Causes Verified 09/08/24 18:08 amphetamine [From Adderall] AdvReac Anxiety Verified 09/08/24 18:08 dextroamphetamine AdvReac Anxiety Verified 09/08/24 18:08 [From Adderall] Review of Systems 2 General: Reports: 10 or more systems reviewed and unremarkable except in HPI and below PFS ED 2 PFSH: Medical History Exercise counseling No pertinent past medical history Denies diabetes, asthma, hypertension, DVT/PE PCP: Dr. Lopez Autism Seizure one seizure in elementary school; no known etiology; no further episodes Oppositional defiant behavior ADD (attention deficit disorder) Surgical History H/O tubal ligation (~01/18/23) performed by [facility] S/P eye surgery Grandmother states that her external eye muscles were too long and they were shortened to help with vision. S/P tonsillectomy and adenoidectomy In February 2014 Family History Mother Hypertension Unknown Family history not known due to adoption Elli's mother was adopted and details of family history are unknown. Yolanda mother has been incarcerated with multiple social problems and as a result Elli stays with her grandmother. Social History Smoking and tobacco/nicotine status: unknown if used tobacco/nicotine Physical Exam 2 Const: COMMON NORMALS: no acute distress, average body habitus, patient oriented x3, no limitations, healthy appearing, alert and well nourished HENMT: COMMON NORMALS: normocephalic, atraumatic, hearing grossly normal bilaterally, external ears normal, Normal external nose present and moist oral mucous membranes HEAD & SCALP: normocephalic and atraumatic NOSE: Normal external nose present EXTERNAL EAR: Yes external ears normal Neck/C-Spine: COMMON NORMALS: full ROM, no lymphadenopathy, supple, no meningeal signs, no JVD and Thyroid normal THYROID: Thyroid normal Chest: COMMONS NORMALS: normal inspection of the chest; negative for normal palpation of entire chest wall (Diffuse tenderness with palpation reproduces the pain) Resp: COMMON NORMALS: normal respiratory effort, No retractions, No use of accessory muscles and clear to auscultation bilaterally AUSCULTATION: clear to auscultation bilaterally Cardio: COMMON NORMALS: no JVD, regular rate, regular rhythm, S1 normal heart sound present, S2 normal heart sound present, No gallops present (Cardio), No clicks present (Cardio), No murmurs present (Cardio) and No rub (Cardio) R ATE: regular rate RHYTHM: regular rhythm HEART SOUNDS: S1 normal heart sound present and S2 normal heart sound present GI: COMMON NORMALS: Normal to inspection, nondistended, normoactive bowel sounds present, Soft to palpation, non-tender and No hepatosplenomegaly present PALPATION: Yes Soft to palpation and Yes No hepatosplenomegaly present Neuro: COMMON NORMALS: patient oriented x3 SENSORIUM/ORIENTATION: Yes alert MENINGEAL SIGNS: Yes no meningeal signs Course 2 Vital Signs: Vital signs: Vital Signs Temperature 98.0 F 09/28/24 22:31 Pulse Rate 99 09/28/24 22:31 Respiratory Rate 16 09/28/24 22:31 Blood Pressure 152/95 09/28/24 22:31 Pulse Oximetry 98 09/28/24 22:31 Oxygen Delivery Me thod Room Air 09/28/24 22:31 MDM - SOB/Dyspnea Medical Decision Making Patient was worked up in with us with EKGs and enzymes, chest x-ray, urinalysis, all of which was negative except for UA which showed UTI. Patient be discharged home. Medical Records I reviewed the patient's medical records. Lab Data I reviewed the patient's lab results. 09/28/24 23:10 Labs/Radiology: Radiology Impressions Chest X-Ray 09/28/24 22:55 IMPRESSION: Right hilar to lower lobe atelectasis versus infiltrate Laboratory Results WBC 10.77 10^3/uL (4.5-13.0) 09/28/24 23:10 RBC 4.68 10^6/uL (3.85-5.65) 09/28/24 23:10 Hgb 12.90 g/dL (12.4-14.8) 09/28/24 23:10 Hct 40.8 % (36-47) 09/28/24 23:10 MCV 87.2 fl (85-98) 09/28/24 23:10 MCH 27.6 pg (27-33) 09/28/24 23:10 MCHC 31.6 g/dL (30-55) 09/28/24 23:10 RDW 12.8 % (12.1-15.1) 09/28/24 23:10 Plt Count 293 10^3/cmm (157-399) 09/28/24 23:10 MPV 9.9 fL (7.4-10.4) 09/28/24 23:10 Neut % (Auto) 60.6 % 09/28/24 23:10 Lymph % (Auto) 23.6 % 09/28/24 23:10 [place] % (Auto) 9.9 % 09/28/24 23:10 Eos % (Auto) 5.0 % 09/28/24 23:10 Baso % (Auto) 0.5 % 09/28/24 23:10 Neut # (Auto) 6.53 10^3/uL (1.8-8.0) 09/28/24 23:10 Lymph # (Auto) 2.5 10^3/uL (1.5-6.5) 09/28/24 23:10 [place] # (Auto) 1.1 10^3/uL (0.2-0.9) H 09/28/24 23:10 Eos # (Auto) 0.5 10^3/uL (0.0-0.8) 09/28/24 23:10 Baso # (Auto) 0.1 10^3/uL (0.0-0.1) 09/28/24 23:10 Nucleated RBC % (auto) 0 % 09/28/24 23:10 Nucleated RBCs # 0.0 /100WBC 09/28/24 23:10 Troponin T Baseline < 6 ng/L (0-10) 09/28/24 23:10 Urine Color Dark yellow (Yellow) A 09/29/24 00:10 Urine Appearance Clear (CLEAR) 09/29/24 00:10 Urine pH 6.5 (5-7) 09/29/24 00:10 Ur Specific [place] 1.019 (1.005-1.030) 09/29/24 00:10 Urine Protein Negative (Negative) 09/29/24 00:10 Urine Glucose (UA) Negative (Normal) 09/29/24 00:10 Urine Ketones Negative (Negative) 09/29/24 00:10 Urine Blood 1+ (Negative) A 09/29/24 00:10 Urine Nitrate Negative (Negative) 09/29/24 00:10 Urine Bilirubin Negative (Negative) 09/29/24 00:10 Urine Urobilinogen 1.0 mg/dL (Negative) 09/29/24 00:10 Ur Leukocyte Esterase 2+ (Negative) A 09/29/24 00:10 Urine RBC 0-2 /hpf (0-2) 09/29/24 00:10 Urine WBC 11-20 /hpf (0-5) H 09/29/24 00:10 Ur Squamous Epith Cells 6-10 /hpf (0-5) 09/29/24 00:10 Amorphous Sediment Not Reportable 09/29/24 00:10 Urine Bacteria 2+ /hpf (NONE) H 09/29/24 00:10 Hyaline Casts 0.81 /lpf 09/29/24 00:10 All radiology interpretation(s) finalized by discharge Discharge Plan Discharge Patient Disposition: Home Clinical Impression: Chest pain Qualifiers: Chest pain type: unspecified Qualified Code(s): R07.9 - Chest pain, unspecified Urinary tract infection Qualifiers: Urinary tract infection type: acute cystitis Hematuria presence: without hematuria Qualified Code(s): N30.00 - Acute cystitis without hematuria Condition: Stable Prescriptions: New ciprofloxacin HCl 500 mg tablet 500 mg PO Q12H Qty: 20 0RF No Action lamotrigine 200 mg tablet 300 mg PO DAILY levonorgestrel-ethinyl estrad [Levora-28] 0.15-0.03 mg tablet 1 tab PO DAILY Qty: 84 5RF Rx Instructions: TAKING CONTINUOUS-- SKIPS PLACEBO; ALLOW FOR ENOUGH REFILLS TO LAST UNTIL 02/14/25 Multi-Vitamin With Fluoride 1 mg tablet,chewable 1 tab PO DAILY Qty: 30 11RF Rx Instructions: TAKE 1 TABLET BY MOUTH EVERY DAY ziprasidone HCl 60 mg capsule 80 mg PO BID Rx Instructions: Take 1 tablet by Mouth morning and at 8pm. hydroxyzine HCl 50 mg tablet 50 mg PO TID Qty: 180 3RF Rx Instructions: morning, afternoon and evening lorazepam 0.5 mg tablet 1 mg PO TID PRN Cepacol Sore Throat (abdi-men) 15-2.6 mg lozenge 1 [place] mucous membrane Q2H PRN lidocaine prilocaine cream topical PRN acetaminophen [Tylenol Extra Strength] 500 mg tablet 1,000 mg PO TID PRN (Reason: pain) Qty: 90 3RF Rx Instructions: 2 tabs by mouth every 8 hr daily as needed for pain C Complex 1,000 mg tablet extended release 1,000 mg PO DAILY Qty: 30 11RF Rx Instructions: Take 1 tablet PO, every day at 8am. ibuprofen 600 mg tablet 600 mg PO TID PRN (Reason: pain) Qty: 60 3RF Rx Instructions: take with food Balanced B-100 Complex 100 mg tablet extended release 1 tab PO DAILY Qty: 30 11RF Rx Instructions: take 1 tablet PO every day at 8am. polyethylene glycol 3350 [Gavilax] 17 gram/dose powder See Rx Instructions .ROUTE .COMPLEX Qty: 510 11RF Dose Instruction: USE 17 GRAMS EVERY DAY FOR CONSTIPATION Rx Instructions: 34 grams BID x 7 days, then 17 GRAMS BID FOR CONSTIPATION nystatin 100,000 unit/gram powder 1 applic topical TID PRN (Reason: yeast infection) Qty: 30 3RF Rx Instructions: Apply 3 times daily x 7-14 days when signs of yeast infection appear sertraline 150 mg capsule 200 mg PO DAILY fluticasone propionate [Allergy Relief (fluticasone)] 50 mcg/actuation spray,suspension 1 spray INTRANASAL DAILY Qty: 16 0RF Rx Instructions: 1 spray each nostril daily simethicone [Gas Relief (simethicone)] 125 mg capsule 125 mg PO QID MDD 4 caps PRN (Reason: abdominal distention) Qty: 90 3RF Rx Instructions: 1 cap by mouth after meals and at bedtime mupirocin 2 % ointment 1 applic topical TID PRN (Reason: crusted rash) 7 Days Qty: 22 0RF Rx Instructions: apply 3x/day x 7 days if crusted/oozing rash suggests impetigo levomefolate calcium [L-Methylfolate] 15 mg tablet 15 mg PO DAILY Qty: 30 3RF cetirizine 10 mg tablet See Rx Instructions .ROUTE .COMPLEX Qty: 30 3RF Dose Instruction: TAKE ONE TABLET BY MOUTH EVERY DAY Rx Instructions: TAKE ONE TABLET BY MOUTH EVERY DAY cholecalciferol (vitamin D3) 50 mcg (2,000 unit) capsule 50 mcg PO DAILY 42 Days Qty: 42 0RF Rx Instructions: 1 capsule by mouth daily x 42 days clonidine HCl 0.1 mg tablet extended release 12 hr 0.2 mg PO TID Patient Comments: 2 tabs morning, noon, and evening Discharge Orders: Discharge ED (Routine); Ordered 09/29/24 Ordered By: Vamshi Carreon Referrals: Melanie Lopez MD [Primary Care Provider] - 1 week Patient Instructions: Chest Pain (DC), Urinary Tract Infection - Women Activity Restrictions/Additional Instructions: Thank you for choosing [facility] for your healthcare needs today. Please realize that you were seen in the emergency department and that we are providing you with an emergency medical screening exam and this may not be a complete and all exclusive of all testing and/or medical workup we may need to determine your element or severity of your illness. It is very important that you follow-up as instructed with your primary care provider or specialist for the additional evaluation and to discuss your medical treatment plan. You may return to the emergency department should you have concerns or if your condition changes or worsens in any way. Coding Level of Care Code ED Pulverizer Operator for Corrina Wheat
--- NOTE | 2024-09-28 22:55 | ECG_ITS ---
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 Measurements Intervals [place] Rate: 94 P: 39 ND: 155 QRS: 51 QRSD: 97 T: 32 QT: 360 QTc: 450 Interpretive Statements SINUS RHYTHM Compared to ECG 09/28/2024 22:42:16 No significant changes Electronically Signed On 09-29-2024 15:55:15 HOUSE VISITOR by Johann Carreno M.D. [id number]
--- NOTE | 2024-09-28 22:55 | XRR_ITS ---
PROCEDURE INFORMATION: Exam: XR Chest Exam date and time: 09/28/2024 10:56 PM Age: 19 years old Clinical indication: Chest pressure; Patient HX: C/O chest pain TECHNIQUE: Imaging protocol: Radiologic exam of the chest. Views: 1 view. COMPARISON: CR XR chest 1V portable [id number] 07/15/2024 9:44 PM FINDINGS: Lungs: Right hilar to lower lobe atelectasis versus infiltrate Pleural spaces: Unremarkable. No pleural effusion. No pneumothorax. Heart/Mediastinum: Unremarkable. No cardiomegaly. Bones/joints: Unremarkable. XR/XR chest 1V portable [id number] IMPRESSION: Right hilar to lower lobe atelectasis versus infiltrate
[2024-09-28 23:22] LABS: Basophils # 0.1 10^3/uL (0.0-0.1); Basophils % 0.5 %; Eosinophils # 0.5 10^3/uL (0.0-0.8); Hematocrit 40.8 % (36-47); Lymphocytes # 2.5 10^3/uL (1.5-6.5); Lymphocytes % 23.6 %; Mean Corpuscular HGB Conc 31.6 g/dL (30-55); Mean Corpuscular Hemoglobin 27.6 pg (27-33); Mean Corpuscular Volume 87.2 fl (85-98); Mean Platelet Volume 9.9 fL (7.4-10.4); Monocytes # 1.1 10^3/uL (0.2-0.9); Monocytes % 9.9 %; Neutrophils # 6.53 10^3/uL (1.8-8.0); Neutrophils % 60.6 %; Nucleated Red Blood Cells % 0 %; Platelet Count 293 10^3/cmm (157-399); Red Blood Count 4.68 10^6/uL (3.85-5.65); Red Cell Distribution Width 12.8 % (12.1-15.1); White Blood Count 10.77 10^3/uL (4.5-13.0)
[2024-09-28 23:47] LABS: Troponin(5th) Baseline < 6 ng/L (0-10)
[2024-09-29 00:28] LABS: Bilirubin Urine Negative (Negative); Blood Urine 1+ (Negative); Glucose Urine UA Negative (Normal); Ketones Urine Negative (Negative); Leukocyte Esterase Urine 2+ (Negative); Nitrate Urine Negative (Negative); Protein Urine Negative (Negative); Specific Gravity, Urine 1.019 (1.005-1.030); Urine Appearance Clear (CLEAR); Urine Color Dark Yellow (Yellow); pH Urine 6.5 (5-7)
[2024-09-29 00:33] LABS: Add Urine Microscopic? YES; Bacteria Urine 2+ /hpf; Hyaline Casts Urine 0.81 /lpf; RBC Urine 0-2 /hpf (0-2)
[2024-09-29 00:34] LABS: Add Urine Culture? Yes
[2024-09-29 01:02] VITALS: BP 136/78; PULSE 77; O2SAT 99
[2024-09-29] MEDS: ciprofloxacin 500 mg Tablet PO (01:07)
== END 2024-09-29 01:03 | disposition home or self-care (01) ==
PROVIDERS: Emergency Provider Emergency Medicine; PCP Pediatrics Adolescent Medicine
DX: R07.9 Chest pain, unspecified (principal); N30.00 Acute cystitis without hematuria
CPT/HCPCS: 71045; 81001; 84484; 85025; 87086; 93005; 99285

== ENCOUNTER 2024-10-07 21:07 | Emergency (ER) | payer MEDICAID, SELFPAY ==
[2024-10-07 21:12] VITALS: BP 147/84; PULSE 101; RESP 16; TEMP 36.8; O2SAT 96; BMI 53.6
[2024-10-07] MEDS: promethazine 25 mg/mL SDV 1 mL 50 MG IM (22:29)
[2024-10-07] MEDS: ketorolac 60 mg/2 mL INJ IM (22:30)
[2024-10-07 23:00] VITALS: PULSE 87; RESP 16; O2SAT 94
--- NOTE | 2024-10-07 23:04 | ED_ITS ---
HPI - Headache General: Chief Complaint: Headache Stated Complaint: headache all day o2 90 seeing black spots Time Seen by Provider: 10/07/24 21:33 History of Present Illness: 19-year-old female with a history of heandrew mccurdy. She presents with a headache for 2 days. She was given glasses recently, and has been playing her Nintendo today without her glasses. She notes some light sensitivity. No vomiting. She did have some nausea. She notes when the pain is at the worst, she sees black spots. Related Data Home Medications Medication Instructions Recorded Confirmed lamotrigine 200 mg tablet 300 mg PO DAILY 03/04/21 09/08/24 clonidine HCl 0.1 mg 0.2 mg PO TID 12/19/23 09/08/24 tablet,extended release,12 hr sertraline 150 mg capsule 200 mg PO DAILY 01/18/24 09/08/24 benzocaine 15 mg-menthol 2.6 mg 1 [place] mucous membrane Q2H PRN 05/02/24 09/08/24 lozenges (Cepacol Sore Throat (benzocaine-menthol)) lidocaine prilocaine cream topical PRN 05/02/24 09/08/24 lorazepam 0.5 mg tablet 1 mg PO TID PRN 05/02/24 09/08/24 ziprasidone HCl 60 mg capsule 80 mg PO BID 05/02/24 09/08/24 Previous Rx's Medication Instructions Recorded pediatric multivitamin no.17 with 1 tab PO DAILY #30 tabs 12/19/23 fluoride 1 mg chewable tablet (Multi-Vitamin With Fluoride) fluticasone propionate 50 1 spray intranasal DAILY #16 grams 01/18/24 mcg/actuation nasal spray,suspension (Allergy Relief (fluticasone)) simethicone 125 mg capsule (Gas 125 mg PO QID PRN abdominal 01/27/24 Relief (simethicone)) distention #90 caps levonorgestrel 0.15 mg-ethinyl 1 tab PO DAILY #84 tabs 02/15/24 estradiol 0.03 mg tablet (Levora-28) mupirocin 2 % topical ointment 1 applic topical TID PRN crusted 03/23/24 rash 7 days #22 grams hydroxyzine HCl 50 mg tablet 50 mg PO TID #180 tabs 05/02/24 levomefolate calcium 15 mg tablet 15 mg PO DAILY #30 tabs 06/01/24 (L-Methylfolate) cetirizine 10 mg tablet See Rx Instructions .Route 07/12/24 .COMPLEX #30 tabs acetaminophen 500 mg tablet 1,000 mg (2 x 500 mg) PO TID PRN 08/15/24 (Tylenol Extra Strength) pain #90 tabs ascorbic acid (vitamin C) 1,000 mg 1,000 mg PO DAILY #30 tabs 08/15/24 tablet,extended release (C Complex) ibuprofen 600 mg tablet 600 mg PO TID PRN pain #60 tabs 08/15/24 nystatin 100,000 unit/gram topical 1 applic topical TID PRN yeast 08/15/24 powder infection #30 grams polyethylene glycol 3350 17 See Rx Instructions .Route 08/15/24 gram/dose oral powder (Gavilax) .COMPLEX #510 grams vit B complex 100 combo no.2 100 1 tab PO DAILY #30 tabs 08/15/24 mg tablet,extended release (Balanced B-100 Complex) cholecalciferol (vitamin D3) 50 50 mcg PO DAILY 6 weeks #42 caps 08/16/24 mcg (2,000 unit) capsule ciprofloxacin HCl 500 mg tablet 500 mg PO Q12H #20 tabs 09/29/24 Allergies Allergy/AdvReac Type Severity Reaction Status Date / Time caffeine Allergy Unknown Verified 10/07/24 21:18 cocoa Allergy Unknown Verified 10/07/24 21:18 guarana Allergy Unknown Verified 10/07/24 21:18 Xanthines Allergy Unknown Verified 10/07/24 21:18 aripiprazole [From Abilify] AdvReac Mild Behavior Verified 10/07/24 21:18 problems brexpiprazole [From Rexulti] AdvReac Mild Causes Verified 10/07/24 21:18 lurasidone [From Latuda] AdvReac Mild Causes Verified 10/07/24 21:18 amphetamine [From Adderall] AdvReac Anxiety Verified 10/07/24 21:18 dextroamphetamine AdvReac Anxiety Verified 10/07/24 21:18 [From Adderall] PENDING SALE TO [facility] ED PFS: Medical History Exercise counseling No pertinent past medical history Denies diabetes, asthma, hypertension, DVT/PE PCP: Dr. Lopez Autism Seizure one seizure in elementary school; no known etiology; no further episodes Oppositional defiant behavior ADD (attention deficit disorder) Surgical History H/O tubal ligation (~01/18/23) performed by [facility] S/P eye surgery Grandmother states that her external eye muscles were too long and they were shortened to help with vision. S/P tonsillectomy and adenoidectomy In February 2014 Family History Mother Hypertension Unknown Family history not known due to adoption Elli's mother was adopted and details of family history are unknown. Yolanda mother has been incarcerated with multiple social problems and as a result Elli stays with her grandmother. Social History Smoking and tobacco/nicotine status: unknown if used tobacco/nicotine Physical Exam Const: COMMON NORMALS: no acute distress GENERAL APPEARANCE: cooperative; not ill appearing and not frail appearing HENMT: COMMON NORMALS: normocephalic, atraumatic and Normal external nose present HEAD & SCALP: normocephalic and atraumatic FACE & SINUS: normal facial exam and face symmetric NOSE: Normal external nose present Eye: COMMON NORMALS: Equal, round and reactive pupils present and EOMs intact bilaterally PUPIL: Yes Equal, round and reactive pupils present Neck/C-Spine: GENERAL: Yes trachea midline Chest: CHEST: Yes Symmetrical chest wall rise Resp: COMMON NORMALS: normal respiratory effort, No retractions, No use of accessory muscles and clear to auscultation bilaterally AUSCULTATION: clear to auscultation bilaterally Cardio: COMMON NORMALS: regular rate and regular rhythm RATE: regular rate RHYTHM: regular rhythm GI: COMMON NORMALS: Normal to inspection, nondistended, normoactive bowel sounds present Extremity: COMMON NORMALS: no pedal edema Neuro: GAIL COMA SCALE: document GCS findings Harrod coma scale eye opening: Spontaneous Gail coma scale verbal response: Orientated Gail coma scale motor response: Obey commands Gail coma scale total score: 15 CRANIAL NERVES: Yes CN normal except as noted SPEECH: speech normal SENSORY EXAM: Yes extremities (intact) Psych: COMMON NORMALS: speech normal SPEECH: Yes normal speech Skin: COMMON NORMALS: no rashes or lesions noted GENERAL SKIN EXAM: no rashes or lesions noted Course Vital Signs: Vital signs: Vital Signs Temperature 98.2 F 10/07/24 21:12 Pulse Rate 94 10/07/24 23:37 Respiratory Rate 18 10/07/24 23:37 Blood Pressure 131/68 10/07/24 23:37 Pulse Oximetry 96 10/07/24 23:37 Oxygen Delivery Me thod Room Air 10/07/24 23:00 MDM - Headache Medical Decision Making Patient was given injections of promethazine and Toradol for migraine headache. She is no longer seeing spots. She is resting comfortably. Headache is resolved. She be allowed discharge. All radiology interpretation(s) finalized by discharge Discharge Plan Discharge Patient Disposition: Home Clinical Impression: Migraine Qualifiers: Migraine type: ophthalmoplegic Intractability: not intractable Qualified Code(s): G43.B0 - Ophthalmoplegic migraine, not intractable Condition: Stable Prescriptions: No Action lamotrigine 200 mg tablet 300 mg PO DAILY levonorgestrel-ethinyl estrad [Levora-28] 0.15-0.03 mg tablet 1 tab PO DAILY Qty: 84 5RF Rx Instructions: TAKING CONTINUOUS-- SKIPS PLACEBO; ALLOW FOR ENOUGH REFILLS TO LAST UNTIL 02/14/25 Multi-Vitamin With Fluoride 1 mg tablet,chewable 1 tab PO DAILY Qty: 30 11RF Rx Instructions: TAKE 1 TABLET BY MOUTH EVERY DAY ziprasidone HCl 60 mg capsule 80 mg PO BID Rx Instructions: Take 1 tablet by Mouth morning and at 8pm. hydroxyzine HCl 50 mg tablet 50 mg PO TID Qty: 180 3RF Rx Instructions: morning, afternoon and evening lorazepam 0.5 mg tablet 1 mg PO TID PRN Cepacol Sore Throat (abdi-men) 15-2.6 mg lozenge 1 [place] mucous membrane Q2H PRN lidocaine prilocaine cream topical PRN acetaminophen [Tylenol Extra Strength] 500 mg tablet 1,000 mg PO TID PRN (Reason: pain) Qty: 90 3RF Rx Instructions: 2 tabs by mouth every 8 hr daily as needed for pain C Complex 1,000 mg tablet extended release 1,000 mg PO DAILY Qty: 30 11RF Rx Instructions: Take 1 tablet PO, every day at 8am. ibuprofen 600 mg tablet 600 mg PO TID PRN (Reason: pain) Qty: 60 3RF Rx Instructions: take with food Balanced B-100 Complex 100 mg tablet extended release 1 tab PO DAILY Qty: 30 11RF Rx Instructions: take 1 tablet PO every day at 8am. polyethylene glycol 3350 [Gavilax] 17 gram/dose powder See Rx Instructions .ROUTE .COMPLEX Qty: 510 11RF Dose Instruction: USE 17 GRAMS EVERY DAY FOR CONSTIPATION Rx Instructions: 34 grams BID x 7 days, then 17 GRAMS BID FOR CONSTIPATION nystatin 100,000 unit/gram powder 1 applic topical TID PRN (Reason: yeast infection) Qty: 30 3RF Rx Instructions: Apply 3 times daily x 7-14 days when signs of yeast infection appear sertraline 150 mg capsule 200 mg PO DAILY fluticasone propionate [Allergy Relief (fluticasone)] 50 mcg/actuation spray,suspension 1 spray INTRANASAL DAILY Qty: 16 0RF Rx Instructions: 1 spray each nostril daily simethicone [Gas Relief (simethicone)] 125 mg capsule 125 mg PO QID MDD 4 caps PRN (Reason: abdominal distention) Qty: 90 3RF Rx Instructions: 1 cap by mouth after meals and at bedtime mupirocin 2 % ointment 1 applic topical TID PRN (Reason: crusted rash) 7 Days Qty: 22 0RF Rx Instructions: apply 3x/day x 7 days if crusted/oozing rash suggests impetigo levomefolate calcium [L-Methylfolate] 15 mg tablet 15 mg PO DAILY Qty: 30 3RF cetirizine 10 mg tablet See Rx Instructions .ROUTE .COMPLEX Qty: 30 3RF Dose Instruction: TAKE ONE TABLET BY MOUTH EVERY DAY Rx Instructions: TAKE ONE TABLET BY MOUTH EVERY DAY cholecalciferol (vitamin D3) 50 mcg (2,000 unit) capsule 50 mcg PO DAILY 42 Days Qty: 42 0RF Rx Instructions: 1 capsule by mouth daily x 42 days clonidine HCl 0.1 mg tablet extended release 12 hr 0.2 mg PO TID Patient Comments: 2 tabs morning, noon, and evening ciprofloxacin HCl 500 mg tablet 500 mg PO Q12H Qty: 20 0RF Discharge Orders: Discharge ED (Routine); Ordered 10/07/24 Ordered By: Ronald Taylor Referrals: Melanie Lopez MD [Primary Care Provider] - 1-3 days Patient Instructions: Migraine Headache (ED), Acute Headache (ED), Opioid Safety, Pain Management Activity Restrictions/Additional Instructions: Return for worsening headache, vomiting, mental status changes, weakness, worsening vision, other concerning symptoms. Call your doctor tomorrow for an appointment this week for follow-up. Coding Level of Care Code ED [employer]iner for Corrina Wheat
[2024-10-07 23:37] VITALS: BP 131/68; PULSE 94; RESP 18; O2SAT 96
== END 2024-10-07 23:44 | disposition home or self-care (01) ==
PROVIDERS: Emergency Provider Emergency Medicine; PCP Pediatrics Adolescent Medicine
DX: G43.B0 Ophthalmoplegic migraine, not intractable (principal)
CPT/HCPCS: 96372; 99284; J1885; J2550

== ENCOUNTER 2024-10-11 12:58 | Outpatient (CLI) | payer MEDICAID, SELFPAY ==
[2024-10-11 13:38] LABS: Estmated Average Glucose 111; Hemoglobin A1C 5.5 % (4.0-6.0)
[2024-10-11 13:40] LABS: Alanine Aminotransferase 32 U/L (0-33); Alkaline Phosphatase 97 U/L (35-105); Anion Gap 15.3 (5-19); Aspartate Amino Transferase 39 U/L (0-32); Blood Urea Nitrogen 10 mg/dL (6-20); Calcium 9.6 mg/dL (8.5-10.5); Carbon Dioxide 22 mmol/L (22-29); Chloride 103 mmol/L (98-107); Free T4 Free Thyroxine 0.82 ng/dL (0.82-1.77); Globulin 3.2 g/dL (1.3-4.6); Glomerular Filtration Rate 127.5 mL/min (90-130); Glucose 104 mg/dL (65-115); Osmolality Calculated 281 mOsm/kg (285-295); Potassium 4.3 mmol/L (3.5-5.1); Sodium 136 mmol/L (136-145); Thyroid Stimulating Hormone 1.69 uIU/mL (0.27-4.20); Total Bilirubin 0.3 mg/dL (0.15-1.2); Total Protein 7.2 g/dL (6.6-8.7)
[2024-10-11 14:26] LABS: 25 Hydroxy Vitamin D 23 ng/mL (30-100)
== END 2024-10-11 12:59 | disposition home or self-care (01) ==
LOC: LAB 13:00
PROVIDERS: PCP Pediatrics Adolescent Medicine; Visit Provider Nurse Practitioner
DX: E55.9 Vitamin D deficiency, unspecified (principal); R73.03 Prediabetes; R73.09 Other abnormal glucose
CPT/HCPCS: 80053; 82306; 83036; 84439; 84443

== ENCOUNTER → 2024-10-12 08:30 | Outpatient (BNVA) | payer MEDICAID, SELFPAY | PROVIDERS: PCP Pediatrics Adolescent Medicine; Referring Provider Nurse Practitioner; Visit Provider Internal Medicine | DX: R73.09 Other abnormal glucose (principal); R73.03 Prediabetes; E66.9 Obesity, unspecified; Z68.43 Body mass index [BMI] 50.0-59.9, adult | CPT/HCPCS: 99204 ==

== ENCOUNTER → 2024-11-02 16:32 | Outpatient (BNVA) | payer MEDICAID, SELFPAY | PROVIDERS: PCP Pediatrics Adolescent Medicine; Visit Provider Physician Assistant | DX: J02.9 Acute pharyngitis, unspecified (principal) | CPT/HCPCS: 87071; 87880 ==

== ENCOUNTER → 2024-12-03 19:05 | Outpatient (BNVA) | payer MEDICAID, SELFPAY | PROVIDERS: PCP Pediatrics Adolescent Medicine; Visit Provider Nurse Practitioner | DX: R39.9 Unspecified symptoms and signs involving the genitourinary system (principal) | CPT/HCPCS: 81000 ==

== ENCOUNTER → 2025-01-01 18:01 | Outpatient (BNVA) | payer MEDICAID, SELFPAY | PROVIDERS: PCP Pediatrics Adolescent Medicine | DX: R39.9 Unspecified symptoms and signs involving the genitourinary system (principal); R30.0 Dysuria | CPT/HCPCS: 81000; 87086 ==

== ENCOUNTER 2025-01-15 11:20 | Outpatient (CLI) | payer MEDICAID, SELFPAY ==
[2025-01-15 16:26] LABS: Alanine Aminotransferase 25 U/L (0-33); Albumin Level 3.8 g/dL (3.5-5.2); Alkaline Phosphatase 108 U/L (35-105); Anion Gap 17.9 (5-19); Aspartate Amino Transferase 30 U/L (0-32); Blood Urea Nitrogen 10 mg/dL (6-20); Calcium 9.6 mg/dL (8.5-10.5); Carbon Dioxide 18 mmol/L (22-29); Chloride 105 mmol/L (98-107); Globulin 3.5 g/dL (1.3-4.6); Glomerular Filtration Rate 91.4 mL/min (90-130); Glucose 126 mg/dL (65-115); Osmolality Calculated 285 mOsm/kg (285-295); Potassium 3.9 mmol/L (3.5-5.1); Sodium 137 mmol/L (136-145); Total Bilirubin 0.3 mg/dL (0.15-1.2); Total Protein 7.3 g/dL (6.6-8.7)
[2025-01-15 16:41] LABS: 25 Hydroxy Vitamin D 27 ng/mL (30-100)
== END 2025-01-15 11:21 | disposition home or self-care (01) ==
LOC: LAB 11:27
PROVIDERS: Family Provider Internal Medicine; PCP Pediatrics Adolescent Medicine; Visit Provider Nurse Practitioner
DX: E55.9 Vitamin D deficiency, unspecified (principal); R73.09 Other abnormal glucose; Z00.00 Encounter for general adult medical examination without abnormal findings; J02.9 Acute pharyngitis, unspecified
CPT/HCPCS: 36415; 80053; 82306; 85025; 87070; 87880

== ENCOUNTER 2025-02-05 22:31 | Emergency (ER) | payer MEDICAID, SELFPAY ==
[2025-02-05 22:48] VITALS: BP 120/86; PULSE 102; RESP 16; TEMP 36.4; O2SAT 95; BMI 41.6
--- NOTE | 2025-02-05 22:56 | ECG_ITS ---
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 Measurements Intervals [place] Rate: 99 P: 47 NC: 128 QRS: 71 QRSD: 96 T: 34 QT: 344 QTc: 443 Interpretive Statements SINUS RHYTHM WITH OCCASIONAL VENTRICULAR PREMATURE COMPLEXES Compared to ECG 09/28/2024 23:14:50 Ventricular premature complex(es) now present Electronically Signed On 02-06-2025 22:08:39 CDT by Jose Gamez M.D. [email or web address]
[2025-02-05 23:31] LABS: HCG Qualitative Urine. Negative (Negative)
--- NOTE | 2025-02-05 23:31 | XRR_ITS ---
PROCEDURE INFORMATION: Exam: XR Chest Exam date and time: 02/05/2025 11:52 PM Age: 20 years old Clinical indication: Pain; Chest pressure; Additional info: Chest pain TECHNIQUE: Imaging protocol: Radiologic exam of the chest. Views: 1 view. COMPARISON: CR XR chest 1V portable [id number] 09/28/2024 10:56 PM FINDINGS: Lungs: Unremarkable. No consolidation. Pleural spaces: Unremarkable. No pleural effusion. No pneumothorax. Heart/Mediastinum: Unremarkable. No cardiomegaly. Bones/joints: Unremarkable. XR/XR chest 1V portable [id number] IMPRESSION: No acute findings.
[2025-02-05 23:32] LABS: Bilirubin Urine Negative (Negative); Blood Urine Negative (Negative); Glucose Urine UA Negative (Normal); Ketones Urine Trace (Negative); Leukocyte Esterase Urine Trace (Negative); Nitrate Urine Negative (Negative); Protein Urine Negative (Negative); Specific Gravity, Urine 1.026 (1.005-1.030); Urine Appearance Cloudy (CLEAR); Urine Color Dark Yellow (Yellow); pH Urine 5.5 (5-7)
[2025-02-05 23:38] LABS: Add Urine Microscopic? YES; Bacteria Urine None Seen /hpf; Hyaline Casts Urine 0.81 /lpf; RBC Urine 0-2 /hpf (0-2); Squamous Epithelial Cell Urine 0-5 /hpf (0-5); WBC Urine 0-5 /hpf (0-5)
--- NOTE | 2025-02-05 23:54 | W.ED.FEMALGU ---
HPI - Female Genitourinary General: Chief complaint: Urogenital-Female Stated complaint: Possible UTI Time Seen by Provider: 02/05/25 22:39 History of Present Illness: 20-year-old female with a history of autism and seizure disorder who presents emergency room with dysuria. Says this been going on for a day or 2. She also said she had some sharp chest pain earlier. Related Data Home Medications ?Medication ?Instructions ?Recorded ?Confirmed lamotrigine 200 mg tablet 300 mg PO DAILY 03/04/21 01/21/25 clonidine HCl 0.1 mg 0.2 mg PO TID 12/19/23 01/21/25 tablet,extended release,12 hr sertraline 150 mg capsule 200 mg PO DAILY 01/18/24 01/21/25 benzocaine 15 mg-menthol 2.6 mg 1 [place] mucous membrane Q2H PRN 05/02/24 01/21/25 lozenges (Cepacol Sore Throat (benzocaine-menthol)) lidocaine prilocaine cream topical PRN 05/02/24 01/21/25 lorazepam 0.5 mg tablet 1 mg PO TID PRN 05/02/24 01/21/25 ziprasidone HCl 60 mg capsule 80 mg PO BID 05/02/24 01/21/25 Previous Rx's ?Medication ?Instructions ?Recorded fluticasone propionate 50 1 spray intranasal DAILY #16 grams 01/18/24 mcg/actuation nasal spray,suspension (Allergy Relief (fluticasone)) simethicone 125 mg capsule (Gas 125 mg PO QID PRN abdominal 01/27/24 Relief (simethicone)) distention #90 caps levonorgestrel 0.15 mg-ethinyl 1 tab PO DAILY #84 tabs 02/15/24 estradiol 0.03 mg tablet (Levora-28) hydroxyzine HCl 50 mg tablet 50 mg PO TID #180 tabs 05/02/24 acetaminophen 500 mg tablet 1,000 mg (2 x 500 mg) PO TID PRN 08/15/24 (Tylenol Extra Strength) pain #90 tabs ascorbic acid (vitamin C) 1,000 mg 1,000 mg PO DAILY #30 tabs 08/15/24 tablet,extended release (C Complex) ibuprofen 600 mg tablet 600 mg PO TID PRN pain #60 tabs 08/15/24 nystatin 100,000 unit/gram topical 1 applic topical TID PRN yeast 08/15/24 powder infection #30 grams vit B complex 100 combo no.2 100 1 tab PO DAILY #30 tabs 08/15/24 mg tablet,extended release (Balanced B-100 Complex) levomefolate calcium 15 mg tablet 15 mg PO DAILY #30 tabs 10/11/24 (L-Methylfolate) azelastine 137 mcg (0.1 %) nasal 1 spray intranasal BID 30 days #30 11/27/24 spray mL polyethylene glycol 3350 17 See Rx Instructions .Route 01/01/25 gram/dose oral powder .COMPLEX #510 grams nitrofurantoin 100 mg PO Q12H 7 days #14 caps 01/08/25 monohydrate/macrocrystals 100 mg capsule (Macrobid) fluoride (sodium) See Rx Instructions .Route 01/10/25 .COMPLEX #300 tabs cholecalciferol (vitamin D3) 625 625 mcg PO .weekly 10 weeks #10 01/16/25 mcg (25,000 unit) capsule caps mupirocin 2 % topical ointment 1 applic topical TID PRN crusted 01/17/25 rash 7 days #22 grams triamcinolone acetonide 0.5 % 1 applic topical BID 7 days #15 01/17/25 topical cream grams levocetirizine 5 mg tablet See Rx Instructions .Route 01/30/25 .COMPLEX #30 tabs nitrofurantoin 100 mg PO BID 3 days #6 caps 02/05/25 monohydrate/macrocrystals 100 mg capsule (Macrobid) phenazopyridine 100 mg tablet 100 mg PO Q8H 6 doses #6 tabs 02/05/25 (Pyridium) Allergies Allergy/AdvReac Type Severity Reaction Status Date / Time caffeine Allergy Unknown Verified 02/05/25 22:52 cocoa Allergy Unknown Verified 02/05/25 22:52 guarana Allergy Unknown Verified 02/05/25 22:52 Xanthines Allergy Unknown Verified 02/05/25 22:52 aripiprazole (From Abilify) AdvReac Mild Behavior Verified 02/05/25 22:52 problems brexpiprazole (From Rexulti) AdvReac Mild Causes Verified 02/05/25 22:52 lurasidone (From Latuda) AdvReac Mild Causes Verified 02/05/25 22:52 amphetamine (From Adderall) AdvReac Anxiety Verified 02/05/25 22:52 dextroamphetamine (From AdvReac Anxiety Verified 02/05/25 22:52 Adderall) Review of Systems Narrative: Constitutional symptoms: Negative except as documented in HPI. Skin symptoms: Negative except as documented in HPI. Eye symptoms: Negative except as documented in HPI. ENMT symptoms: Negative except as documented in HPI. Respiratory symptoms: Negative except as documented in HPI. Cardiovascular symptoms: Negative except as documented in HPI. Gastrointestinal symptoms: Negative except as documented in HPI. Genitourinary symptoms: Negative except as documented in HPI. Musculoskeletal symptoms: Negative except as documented in HPI. Neurologic symptoms: Negative except as documented in HPI. Psychiatric symptoms: Negative except as documented in HPI. Endocrine symptoms: Negative except as documented in HPI. PFSH ED PFSH: Medical History Exercise counseling No pertinent past medical history Denies diabetes, asthma, hypertension, DVT/PE PCP: Dr. Lopez Autism Seizure one seizure in elementary school; no known etiology; no further episodes Oppositional defiant behavior ADD (attention deficit disorder) Surgical History H/O tubal ligation (~01/18/23) performed by [facility] S/P eye surgery Grandmother states that her external eye muscles were too long and they were shortened to help with vision. S/P tonsillectomy and adenoidectomy In February 2014 Family History Mother Hypertension Unknown Family history not known due to adoption Elli's mother was adopted and details of family history are unknown. Yolanda mother has been incarcerated with multiple social problems and as a result Elli stays with her grandmother. Social History Smoking and tobacco/nicotine status: never used tobacco/nicotine Physical Exam Narrative: EXAM NARRATIVE: General: Alert, no acute distress. Skin: Warm, dry. Head: Normocephalic, atraumatic. Neck: Supple, trachea midline. Eye: Extraocular movements are intact. Ears, nose, mouth and throat: mucosa moist. Cardiovascular: Regular, Normal peripheral perfusion. Respiratory: Lungs are clear to auscultation, respirations are non-labored, breath sounds are equal, Symmetrical chest wall expansion. Gastrointestinal: Soft, Nontender, Non distended Musculoskeletal: Normal ROM, no deformity. Neurological: Alert and oriented, No focal neurological deficit observed. Psychiatric: Cooperative, appropriate mood & affect. Course Vital Signs: Vital signs: Vital Signs Temperature 97.6 F 02/05/25 22:48 Pulse Rate 102 H 02/05/25 22:48 Respiratory Rate 16 02/05/25 22:48 Blood Pressure 120/86 02/05/25 22:48 Pulse Oximetry 95 02/05/25 22:48 Oxygen Delivery Me thod Room Air 02/05/25 22:48 MDM - Female Medical Decision Making Medical decision making: Differential diagnosis including but not limited to and based on the above HPI, review of systems and physical exam: Differential diagnosis for patient with dysuria / lower abdominal pain: Ureterolithiasis. Urinary tract infection. Cystitis. With the possibility of sepsis, pyelonephritis and renal failure. Orders placed to evaluate differential diagnosis based on the above differential, HPI and physical exam EKG: Time 2256. Rate 99. Normal sinus rhythm, No ST-T changes, no ectopy, normal OH & QRS intervals, This was reviewed and interpreted by myself the ER physician at 2300. Chest x-ray: No acute process. No infiltrate. No pneumothorax. T films were interpreted by myself the emergency room provider and pending final radiology review. Lab Review: Laboratory results were reviewed and interpreted by myself the emergency room physician. Urine does not appear overtly infected. But since she is having symptoms, treat her with some Pyridium and Macrobid. I reviewed the patient's medical record. Reexamination: Patient remained stable. No increased work of breathing. No altered mental status. No focal motor deficits. Assessment and plan: Dysuria Noncardiac chest pain ? First dose Pyridium and Macrobid here in the emergency room. - Discharged home - Discussed plan with patient. Answered any questions. - Evaluation and treatment of this problem were appropriate in the emergency setting. Lab Data Laboratory Results HCG, Qual Negative (Negative) 02/05/25 23:26 Urine Color Dark yellow (Yellow) A 02/05/25 23:26 Urine Appearance Cloudy (CLEAR) A 02/05/25 23: Urine pH 5.5 (5-7) 02/05/25 23: Ur Specific [place] 1.026 (1.005-1.030) 02/05/25 23:26 Urine Protein Negative (Negative) 02/05/25 23: Urine Glucose (UA) Negative (Normal) 02/05/25 23: Urine Ketones Trace (Negative) 02/05/25 23: Urine Blood Negative (Negative) 02/05/25 23: Urine Nitrate Negative (Negative) 02/05/25 23: Urine Bilirubin Negative (Negative) 02/05/25 23: Urine Urobilinogen 1.0 mg/dL (Negative) 02/05/25 23: Ur Leukocyte Esterase Trace (Negative) A 02/05/25 23: Urine RBC 0-2 /hpf (0-2) 02/05/25 23:26 Urine WBC 0-5 /hpf (0-5) 02/05/25 23: Ur Squamous Epith Cells 0-5 /hpf (0-5) 02/05/25 23: Amorphous Sediment Not Reportable 02/05/25 23: Urine Bacteria None seen /hpf (NONE) 02/05/25 23: Hyaline Casts 0.81 /lpf 02/05/25 23:26 XR interpretation done by ED provider, pending radiology final review Discharge Plan Discharge Patient Disposition: Home Clinical Impression: Dysuria Condition: Stable Prescriptions: New nitrofurantoin monohyd/m-cryst [Macrobid] 100 mg capsule 100 mg PO BID 3 Days Qty: 6 0RF Rx Instructions: must administer with a meal/food phenazopyridine [Pyridium] 100 mg tablet 100 mg PO Q8H Qty: 6 0RF No Action lamotrigine 200 mg tablet 300 mg PO DAILY levonorgestrel-ethinyl estrad [Levora-28] 0.15-0.03 mg tablet 1 tab PO DAILY Qty: 84 5RF Rx Instructions: TAKING CONTINUOUS-- SKIPS PLACEBO; ALLOW FOR ENOUGH REFILLS TO LAST UNTIL 02/14/25 ziprasidone HCl 60 mg capsule 80 mg PO BID Rx Instructions: Take 1 tablet by Mouth morning and at 8pm. hydroxyzine HCl 50 mg tablet 50 mg PO TID Qty: 180 3RF Rx Instructions: morning, afternoon and evening lorazepam 0.5 mg tablet 1 mg PO TID PRN Cepacol Sore Throat (abdi-men) 15-2.6 mg lozenge 1 [place] mucous membrane Q2H PRN lidocaine prilocaine cream topical PRN acetaminophen [Tylenol Extra Strength] 500 mg tablet 1,000 mg PO TID PRN (Reason: pain) Qty: 90 3RF Rx Instructions: 2 tabs by mouth every 8 hr daily as needed for pain C Complex 1,000 mg tablet extended release 1,000 mg PO DAILY Qty: 30 11RF Rx Instructions: Take 1 tablet PO, every day at 8am. ibuprofen 600 mg tablet 600 mg PO TID PRN (Reason: pain) Qty: 60 3RF Rx Instructions: take with food Balanced B-100 Complex 100 mg tablet extended release 1 tab PO DAILY Qty: 30 11RF Rx Instructions: take 1 tablet PO every day at 8am. nystatin 100,000 unit/gram powder 1 applic topical TID PRN (Reason: yeast infection) Qty: 30 3RF Rx Instructions: Apply 3 times daily x 7-14 days when signs of yeast infection appear mupirocin 2 % ointment 1 applic topical TID PRN (Reason: crusted rash) 7 Days Qty: 22 0RF Rx Instructions: apply 3x/day x 7 days if crusted/oozing rash suggests impetigo triamcinolone acetonide 0.5 % cream 1 applic topical BID 7 Days Qty: 15 0RF Rx Instructions: Apply thin layer twice daily to clean, dry skin of soles of feet. sertraline 150 mg capsule 200 mg PO DAILY fluticasone propionate [Allergy Relief (fluticasone)] 50 mcg/actuation spray,suspension 1 spray INTRANASAL DAILY Qty: 16 0RF Rx Instructions: 1 spray each nostril daily simethicone [Gas Relief (simethicone)] 125 mg capsule 125 mg PO QID MDD 4 caps PRN (Reason: abdominal distention) Qty: 90 3RF Rx Instructions: 1 cap by mouth after meals and at bedtime levomefolate calcium [L-Methylfolate] 15 mg tablet 15 mg PO DAILY Qty: 30 11RF Rx Instructions: 1 tab by mouth daily azelastine 137 mcg (0.1 %) spray,non-aerosol 1 spray intranasal BID 30 Days Qty: 30 6RF Rx Instructions: administer into each nostril; use saline first polyethylene glycol 3350 17 gram/dose powder See Rx Instructions .ROUTE .COMPLEX Qty: 510 11RF Dose Instruction: DISSOLVE 1 capful (17gm) IN LIQUID AND DRINK TWICE DAILY FOR CONSTIPATION Rx Instructions: DISSOLVE 1 capful (17gm) IN LIQUID AND DRINK TWICE DAILY FOR CONSTIPATION nitrofurantoin monohyd/m-cryst [Macrobid] 100 mg capsule 100 mg PO Q12H 7 Days Qty: 14 0RF Rx Instructions: must administer with a meal/food fluoride (sodium) 1 mg (2.2 mg sod. fluoride) tablet,chewable See Rx Instructions .ROUTE .COMPLEX Qty: 300 0RF Dose Instruction: CHEW ONE TABLET BY MOUTH EVERY DAY FOR ORAL HEALTH Rx Instructions: CHEW ONE TABLET BY MOUTH EVERY DAY FOR ORAL HEALTH cholecalciferol (vitamin D3) 625 mcg (25,000 unit) capsule 625 mcg PO .weekly 70 Days Qty: 10 1RF Rx Instructions: 1 capsule by mouth weekly; take on same day of the week each week levocetirizine 5 mg tablet See Rx Instructions .ROUTE .COMPLEX Qty: 30 3RF Dose Instruction: TAKE ONE TABLET BY MOUTH EVERY DAY Rx Instructions: TAKE ONE TABLET BY MOUTH EVERY DAY clonidine HCl 0.1 mg tablet extended release 12 hr 0.2 mg PO TID Patient Comments: 2 tabs morning, noon, and evening Discharge Orders: Discharge ED (Routine); Ordered 02/06/25 Ordered By: Natasha Deshpande Referrals: Melanie Lopez MD [Primary Care Provider] - Discharge Diet: Usual diet Discharge Activity: Increase activity as tolerated Patient Instructions: Dysuria (ED), Opioid Safety, Pain Management Activity Restrictions/Additional Instructions: Thank you for choosing [facility] for your healthcare needs today. Please realize this is an emergency room and that we are providing you with a medical screening exam and this may not be complete and all inclusive of all the testing and or work up that you may need to determine your ailment or severity of your illness. You have been screened and evaluated and felt safe for discharge. Health conditions do change or evolve sometimes and as such it is important that you follow up with your Primary Doctor to be re checked, 3-5 days is a general good time frame for follow up. 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
[2025-02-06] VITALS: BP 136/91; PULSE 98; O2SAT 96
[2025-02-06] MEDS: phenazopyridine 100 mg Tablet 200 MG PO (00:31)
[2025-02-06] MEDS: nitrofurantoin SR (BID) 100 mg Capsule PO (00:31)
[2025-02-06 00:48] VITALS: BP 125/83; PULSE 96; O2SAT 96
== END 2025-02-06 00:38 | disposition home or self-care (01) ==
PROVIDERS: Physician Assistant; Emergency Provider Emergency Medicine; PCP Pediatrics Adolescent Medicine
DX: R30.0 Dysuria (principal)
CPT/HCPCS: 71045; 81001; 81025; 93005; 99284; J9999

== ENCOUNTER → 2025-02-20 10:27 | Outpatient (BNVA) | payer MEDICAID, SELFPAY | PROVIDERS: PCP Pediatrics Adolescent Medicine; Visit Provider Internal Medicine | DX: R73.03 Prediabetes (principal); E66.9 Obesity, unspecified; K59.00 Constipation, unspecified | CPT/HCPCS: 99214 ==

== ENCOUNTER 2025-02-22 08:12 | Outpatient (CLI) | payer MEDICAID, SELFPAY ==
[2025-02-22 09:04] LABS: Cortisol Random 1.02 ug/dL (2.47-19.5)
== END 2025-02-22 08:13 | disposition home or self-care (01) ==
LOC: LAB 08:14
PROVIDERS: PCP Family Medicine; Visit Provider Internal Medicine
DX: E66.9 Obesity, unspecified (principal); R73.03 Prediabetes
CPT/HCPCS: 36415; 82533

== ENCOUNTER → 2025-05-22 10:23 | Outpatient (BNVA) | payer MEDICAID, SELFPAY | PROVIDERS: PCP Family Medicine; Visit Provider Internal Medicine | DX: R73.09 Other abnormal glucose (principal); R73.03 Prediabetes; E66.9 Obesity, unspecified; K59.00 Constipation, unspecified | CPT/HCPCS: 99214 ==

== ENCOUNTER → 2025-06-26 12:44 | Outpatient (BNVA) | payer MEDICAID, SELFPAY | PROVIDERS: PCP Family Medicine; Visit Provider Registered Nurse Neonatal Intensive Care | DX: J02.9 Acute pharyngitis, unspecified (principal) | CPT/HCPCS: 87071; 87880 ==

== ENCOUNTER 2025-07-24 11:15 | Outpatient (CLI) | payer MEDICAID, SELFPAY ==
[2025-07-24 12:06] LABS: Alanine Aminotransferase 27 U/L (0-33); Albumin Level 4.1 g/dL (3.5-5.2); Alkaline Phosphatase 108 U/L (35-105); Anion Gap 17.8 (5-19); Aspartate Amino Transferase 24 U/L (0-32); Blood Urea Nitrogen 12 mg/dL (6-20); Calcium 10.0 mg/dL (8.5-10.5); Carbon Dioxide 23 mmol/L (22-29); Chloride 103 mmol/L (98-107); Globulin 3.9 g/dL (1.3-4.6); Glucose 119 mg/dL (65-115); Osmolality Calculated 291 mOsm/kg (285-295); Potassium 3.8 mmol/L (3.5-5.1); Sodium 140 mmol/L (136-145); Total Protein 8.0 g/dL (6.6-8.7)
[2025-07-24 12:10] LABS: Estmated Average Glucose 114; Hemoglobin A1C 5.6 % (4.0-6.0)
== END 2025-07-24 11:16 | disposition home or self-care (01) ==
LOC: LAB 11:16
PROVIDERS: PCP Family Medicine; Visit Provider Internal Medicine
DX: E11.9 Type 2 diabetes mellitus without complications (principal)
CPT/HCPCS: 36415; 80053; 83036